=== PATIENT | female | born 1980 | race Caucasian/White ===

== ENCOUNTER 2020-10-10 13:12 | Inpatient (IN) | payer MEDICARE, MEDICAID, SELFPAY ==
[2020-10-10 13:49] VITALS: BP 100/69; PULSE 79; RESP 15; TEMP 37.1; O2SAT 94; BMI 34.3
[2020-10-10 13:55] VITALS: BP 100/69; PULSE 79; RESP 15; TEMP 37.1; O2SAT 94
--- NOTE | 2020-10-10 14:00 | ED.PSYCH ---
HPI - Psych General Chief Complaint: Psychiatric Symptoms Stated Complaint: crisis Time Seen by Provider: 10/10/20 13:41 Source: patient Mode of arrival: ambulatory Limitations: no limitations History of Present Illness HPI Narrative: 39 yo female here with past medical history PTSD, anxiety, depression, previous suicide attempt here with complaints of suicidal ideations for the last few days with no plan. No HI. No hallucinations. No physical complaints. Has been compliant with taking her medications MD complaint: suicidal ideation Onset (ago): day(s) Duration: intermittent History of same: Yes Relieving factors: none Exacerbating factors: none Associated psychiatric symptoms: depression and suicidal ideation Associated symptoms: denies other symptoms Treatments prior to arrival: none If self harm: admits thoughts of self harm Related Data Home Medications Medication Instructions Recorded Confirmed benztropine 1 tab PO DAILY 10/10/20 10/10/20 citalopram 1 tab PO DAILY 10/10/20 10/10/20 clonazepam 1 tab PO BID PRN 10/10/20 10/10/20 gabapentin 1 cap PO TID 10/10/20 10/10/20 hydroxyzine HCl 1 tab PO QID PRN 10/10/20 10/10/20 lamotrigine 1.5 tab PO DAILY 10/10/20 10/10/20 quetiapine 1 tab PO BEDTIME 10/10/20 10/10/20 quetiapine 1 tab PO BID PRN 10/10/20 10/10/20 Allergies Allergy/AdvReac Type Severity Reaction Status Date / Time No Known Allergies Allergy Unverified 06/04/20 17:17 Review of Systems Review of Systems: Yes all other systems are reviewed and are negative Constitutional: Constitutional: Reports no additional constitutional complaints, Denies body ache(s), Denies chills, Denies fever(s), Denies headache(s) and Denies weakness Eyes: Eyes: Reports no additional eye complaints and Denies change in vision ENT: Reports system reviewed and no additional complaints, except as documented, Denies dizziness, Denies headache(s), Denies nasal congestion, Denies nasal discharge and Denies neck pain Cardiovascular: Cardiovascular: Reports no additional cardiovascular complaints, Denies chest pain, Denies leg edema and Denies dyspnea Respiratory: Respiratory: Reports no additional respiratory complaints, Denies cough and Denies dyspnea Gastrointestinal: Gastrointestinal: Reports no additional gastrointestinal complaints, Denies abdominal pain, Denies diarrhea, Denies nausea and Denies vomiting Genitourinary: Genitourinary: Reports no additional female genitourinary complaints and Denies urinary incontinence Musculoskeletal: Musculoskeletal: Reports no additional musculoskeletal complaints, Denies back pain, Denies arthralgias, Denies joint swelling, Denies neck pain, Denies numbness and Denies tingling Integumentary/Breasts: Skin/Breast: Reports system reviewed and no additional complaints, except as docu and Denies rash Neurologic: Reports system reviewed and no additional complaints, except as documented, Denies Abnormal speech present, Denies dizziness, Denies headache(s), Denies numbness, Denies tingling and Denies weakness Psychiatric: Psychiatric: Reports depression, Denies visual hallucinations, Denies hallucinations, Denies tactile hallucinations, Denies homicidal ideation and Reports suicidal ideation [facility] Past Medical History Attestation statement: The following information was validated with the patient. Source: old records reviewed and nursing notes reviewed Medical History (Updated 10/10/20 @ 18:47 by Suzan Hua NP) Anxiety Depression PTSD (post-traumatic stress disorder) Suicide attempt Social History Social History Alcohol intake: former Smoking Status: Current every day smoker Use of substances other than those prescribed or required for medical reasons: No Advance Directives: No Advance Directives Information Provided: No Physical Exam Vital Signs: Vital Signs: Last Vital Signs Temp 98.7 F 10/10/20 13:55 Pulse 79 10/10/20 13:55 Resp 15 10/10/20 13:55 BP 100/69 10/10/20 13:55 Pulse Ox 94 10/10/20 13:55 Body Mass Index 34.3 Const: General: cooperative, healthy appearing, comfortable and no acute distress Orientation/consciousness: patient oriented x3 Limitations: no limitations HENMT: Head: Yes normal to inspection Ears: hearing grossly normal bilaterally General nose exam: Normal external nose present Face and sinus: Yes normal facial exam Mouth: Normal oral and palatal mucosa present Throat: Yes posterior oropharynx normal Eyes: General: appearance normal, both eyes and all related structures Pupils: Equal, round and reactive pupils present Neck: Neck: Yes normal visual inspection Chest: Chest palpation & inspection: normal inspection of the chest Resp: Effort & Inspection: normal respiratory effort Auscultation: clear to auscultation bilaterally Cardio: Rate: regular rate Rhythm: regular rhythm Peripheral pulses: Peripheral pulses 2+ throughout GI: Inspection: Yes normal to inspection Palpation (GI): Soft to palpation and nontender Auscultation: normal bowel sounds Back/Spine/Pelvis: Thoracic/Lumbar Spine: thoracic and lumbar spine normal to inspection Skin: General skin exam: no rashes or lesions noted Neuro: General: patient oriented x3, no focal motor deficits and normal sensation to monofilament Cranial nerves: Yes Equal, round and reactive pupils present Cognition (Neuro): normal cognition Speech: No Abnormal speech present Gait exam (Neuro): Normal gait present Motor exam (neuro): 5/5 motor strength present throughout Extrem: General: Yes normal to inspection Course Course Course Narrative: 39-year-old female here with suicidal thoughts. No physical complaints. No concern for acute ingestion or trauma. Will check labs, GALDAMEZ and BHN evaluation 1630-Seen by N. Plan for voluntary bed search MDM - Psych Restraints Face to Face Assessment: Face to Face Assessment: Current Situation: After assessment of the patient, a review of the pertinent medical record and a discussion with nursing staff, I feel the patient requires a restrain intervention. Reaction To: [] Medical Condition: [] Behavioral State: [] Continued Need: [] Medical Records Attestation: I reviewed the patient's medical records. Lab Data Attestation: I reviewed the patient's lab results. Result diagrams: 10/10/20 14:15 10/10/20 14:15 Labs: Lab Results 10/10/20 10/10/20 10/10/20 Range/Units 14:05 14:05 14:15 WBC 5.4 (4.8-10.8) X10*3/uL RBC 4.94 (4.20-5.50) X10*6/uL Hgb 14.0 (12.0-16.0) g/dl Hct 42.5 (37-47) % MCV 86.0 (80-98) fL MCH 28.3 (27.0-33.0) pg MCHC 32.9 (31.0-35.0) g/dl RDW 12.3 (11.0-16.0) % Plt Count 184 (160-400) X10*3/uL MPV 9.6 (9.4-12.3) fL Immature Gran % (Auto) 0.2 (0.0-0.4) % Neut % (Auto) 60.5 (45-73) % Lymph % (Auto) 33.8 (20-40) % [place] % (Auto) 4.3 (2-11) % Eos % (Auto) 0.6 (0-4) % Baso % (Auto) 0.6 (0-2) % Lymph # (Auto) 1.8 (1.2-4.9) X10*3/uL [place] # (Auto) 0.2 (0.1-1.2) X10*3/uL Eos # (Auto) 0.0 (0.0-0.4) X10*3/uL Baso # (Auto) 0.0 (0.0-0.2) X10*3/uL Abs Immat Gran (auto) 0.01 (0.00-0.03) X10*3/uL Absolute Neuts (auto) 3.3 (2.0-8.3) X10*3/uL Absolute Nucleated RBC 0.000 (0.0-0.012) X10*3/uL Nucleated RBC % (auto) 0.0 (0.0-0.2) /100WBC Sodium (135-145) mmol/L Potassium (3.3-5.1) mmol/l Chloride (96-108) mmol/L Carbon Dioxide (22-29) mmol/L Anion Gap (12-20) BUN (9-16) mg/dL Creatinine (0.5-1.4) mg/dL Estim Creat Clear Calc Estimated GFR Random Glucose (60-115) mg/dL Calcium (8.4-10.2) mg/dL Total Bilirubin (0.0-1.0) mg/dL Direct Bilirubin (0.0-0.5) mg/dL AST (5-31) U/L ALT (0-31) U/L Alkaline Phosphatase (39-117) U/L Total Protein (6.5-8.0) g/dL Albumin (3.5-5.0) g/dL Urine Test NEGATIVE (NEGATIVE) Urine Opiates Screen Not Detected (Not Detect) Ur Barbiturates Screen Not Detected (Not Detect) Ur Phencyclidine Scrn Not Detected (Not Detect) Ur Amphetamines Screen Not Detected (Not Detect) U Benzodiazepines Scrn POSITIVE H (Not Detect) Urine Cocaine Screen Not Detected (Not Detect) U Marijuana (THC) Screen POSITIVE H (Not Detect) Ethyl Alcohol mg/dL COVID-19 (AAYUSH) (Negative) COVID-19 Clin Com 10/10/20 10/10/20 10/10/20 Range/Units 14:15 14:15 16:36 WBC (4.8-10.8) X10*3/uL RBC (4.20-5.50) X10*6/uL Hgb (12.0-16.0) g/dl Hct (37-47) % MCV (80-98) fL MCH (27.0-33.0) pg MCHC (31.0-35.0) g/dl RDW (11.0-16.0) % Plt Count (160-400) X10*3/uL MPV (9.4-12.3) fL Immature Gran % (Auto) (0.0-0.4) % Neut % (Auto) (45-73) % Lymph % (Auto) (20-40) % [place] % (Auto) (2-11) % Eos % (Auto) (0-4) % Baso % (Auto) (0-2) % Lymph # (Auto) (1.2-4.9) X10*3/uL [place] # (Auto) (0.1-1.2) X10*3/uL Eos # (Auto) (0.0-0.4) X10*3/uL Baso # (Auto) (0.0-0.2) X10*3/uL Abs Immat Gran (auto) (0.00-0.03) X10*3/uL Absolute Neuts (auto) (2.0-8.3) X10*3/uL Absolute Nucleated RBC (0.0-0.012) X10*3/uL Nucleated RBC % (auto) (0.0-0.2) /100WBC Sodium 134 L (135-145) mmol/L Potassium 4.5 (3.3-5.1) mmol/l Chloride 101 (96-108) mmol/L Carbon Dioxide 23 (22-29) mmol/L Anion Gap 15 (12-20) BUN 12 (9-16) mg/dL Creatinine 0.95 (0.5-1.4) mg/dL Estim Creat Clear Calc 87.6 Estimated GFR > 60 Random Glucose 85 (60-115) mg/dL Calcium 8.4 (8.4-10.2) mg/dL Total Bilirubin 0.4 (0.0-1.0) mg/dL Direct Bilirubin < 0.2 (0.0-0.5) mg/dL AST 20 (5-31) U/L ALT 13 (0-31) U/L Alkaline Phosphatase 78 (39-117) U/L Total Protein 6.8 (6.5-8.0) g/dL Albumin 3.8 (3.5-5.0) g/dL Urine Test (NEGATIVE) Urine Opiates Screen (Not Detect) Ur Barbiturates Screen (Not Detect) Ur Phencyclidine Scrn (Not Detect) Ur Amphetamines Screen (Not Detect) U Benzodiazepines Scrn (Not Detect) Urine Cocaine Screen (Not Detect) U Marijuana (THC) Screen (Not Detect) Ethyl Alcohol < 10 mg/dL COVID-19 (AAYUSH) Negative (Negative) COVID-19 Clin Com See Note Discharge Plan Discharge Clinical Impression: Post traumatic stress disorder, Depression Patient Disposition: Xfer Psychiatric Hosp Prescriptions: No Action quetiapine 25 mg tablet 1 tab PO BID PRN (Reason: Agitation) RF: 0 clonazepam 1 mg tablet 1 tab PO BID PRN (Reason: anxiety) RF: 0 hydroxyzine HCl 50 mg tablet 1 tab PO QID PRN (Reason: Anxiety) RF: 0 citalopram 20 mg tablet 1 tab PO DAILY RF: 0 benztropine 1 mg tablet 1 tab PO DAILY RF: 0 gabapentin 300 mg capsule 1 cap PO TID RF: 0 lamotrigine 100 mg tablet 1.5 tab PO DAILY RF: 0 quetiapine 400 mg tablet 1 tab PO BEDTIME RF: 0
[2020-10-10 14:20] LABS: Basophils Percent Auto 0.6 % (0-2); Eosinophils Percent Auto 0.6 % (0-4); Hematocrit 42.5 % (37-47); Imm Gran Abs Auto 0.01 X10*3/uL (0.00-0.03); Imm Gran Pct Auto 0.2 % (0.0-0.4); Lymphocytes Absolute Auto 1.8 X10*3/uL (1.2-4.9); Lymphocytes Percent Auto 33.8 % (20-40); MANUAL DIFF FLAG NO; Mean Corpuscular HGB Conc 32.9 g/dl (31.0-35.0); Mean Corpuscular Hemoglobin 28.3 pg (27.0-33.0); Mean Platelet Volume 9.6 fL (9.4-12.3); Monocytes Absolute Auto 0.2 X10*3/uL (0.1-1.2); Monocytes Percent Auto 4.3 % (2-11); Neutrophils Absolute Auto 3.3 X10*3/uL (2.0-8.3); Neutrophils Percent Auto 60.5 % (45-73); Platelet Count 184 X10*3/uL (160-400); Red Blood Count 4.94 X10*6/uL (4.20-5.50); Red Cell Distribution Width 12.3 % (11.0-16.0); White Blood Count 5.4 X10*3/uL (4.8-10.8)
[2020-10-10 14:27] LABS: UPreg QC Valid YES; Urine Pregnancy NEGATIVE (NEGATIVE)
[2020-10-10 14:45] LABS: Ethanol < 10 mg/dL
[2020-10-10 14:47] LABS: Amphetamine Screen Urine Not Detected (Not Detect); Barbiturates, Urine Not Detected (Not Detect); Benzodiazepines Screen Urine POSITIVE (Not Detect); Cannabinoid Screen Urine POSITIVE (Not Detect); Cocaine Screen Urine Not Detected (Not Detect); Opiate Screen Urine Not Detected (Not Detect); Phencyclidine Screen Urine Not Detected (Not Detect)
[2020-10-10 14:49] LABS: Alanine Aminotransferase 13 U/L (0-31); Albumin Level 3.8 g/dL (3.5-5.0); Alkaline Phosphatase 78 U/L (39-117); Anion Gap 15 (12-20); Aspartate Amino Transferase 20 U/L (5-31); Bilirubin Direct < 0.2 mg/dL (0.0-0.5); Bilirubin Total 0.4 mg/dL (0.0-1.0); Blood Urea Nitrogen 12 mg/dL (9-16); Calcium 8.4 mg/dL (8.4-10.2); Carbon Dioxide 23 mmol/L (22-29); Chloride 101 mmol/L (96-108); Creatinine Clr Calc Pharmacy 87.6; Estimated Glomerular Filt Rate > 60; Glucose Random 85 mg/dL (60-115); Potassium 4.5 mmol/l (3.3-5.1); Sodium 134 mmol/L (135-145); Total Protein 6.8 g/dL (6.5-8.0)
--- NOTE | 2020-10-10 14:55 | PC.NURSE ---
AYLIN faxed and called, confirmed with maxime
--- NOTE | 2020-10-10 15:15 | PC.NURSE ---
Pt reports that she in on methadone maintenence with [facility] in [place], clinic is closed at this time, will verify tomorrow.
--- NOTE | 2020-10-10 15:51 | PC.NURSE ---
[facility] at bedside for eval.
[2020-10-10 16:57] LABS: COVID-19 Test Negative (Negative); IDNOW Serial# 9DD0AD1C
--- NOTE | 2020-10-10 19:24 | PC.NURSE ---
Report received. PT is laying in bed quietly. Tearful but calm and cooperative. Waiting to be transferred to .
[2020-10-10 20:00] VITALS: BP 120/80; PULSE 79; TEMP 36.2
[2020-10-10] MEDS: QUEtiapine Fumarate 400 MG TABLET PO (21:56)
[2020-10-10] MEDS: Gabapentin 300 MG CAPSULE PO (21:56)
[2020-10-10] MEDS: clonazePAM 1 MG TABLET PO (21:57)
--- NOTE | 2020-10-10 23:59 | PC.ADMIT ---
A single, white female aged 39 years was admitted as a CV to [facility] following referral from [facility] and [facility]. Pt has a long history of inpatient psychiatric and detox admissions as well as community based treatment for mental health and substance use disorder. Pt has 3 previous admissions here on M-5 in 2013, 2014 and 2016. Pt self presented to [facility] on 10/10/20 endorsing increasing thoughts of SI related to life stressors including recent of a family member and unemployment r/t Covid pandemic. Pt said she was having difficulty managing symptoms of depression and feels her medications are no longer effective. Pt reported to this check writer salesperson that though she has intermittent SI, she can seek out help from staff. Pt reports that she had a recent suicide attempt involving o/d of prescription medications several months ago in which she was hospitalized at [facility]. Pt reports her SI involves planning o/d of prescription medications at home and in community. Pt rated depression at 8/10 and anxiety at 9/10. Pt reports trauma history and previous diagnosis of PTSD. Pt was cooperative, but offered short answers to questions. Pt avoided eye contact and wanted to do admission while she was in her bed, despite the fact her roommate was in the room. Pt reports that she has difficulty sleeping, with problems going to sleep and staying asleep. Pt reports diminished appetite, but weight gain. Pt denies use of Etoh and substances. Pt is on methadone and says has not used heroin in seven years. pt reports that she has been tapering methadone with intent of eventually being off of it. Pt lacks providers in community. Pt is Covid -, has no medical issues at this time and has noo known allergies. Pt is on 15 minute safety checks at this time. [id number] done. Admitting orders obtained.
[2020-10-11 06:20] VITALS: BP 92/54; PULSE 55; RESP 18; TEMP 36.3; O2SAT 97
[2020-10-11 08:26] LABS: Cholesterol 272 mg/dL; HDL Cholesterol 45 mg/dL; LDL Cholesterol Calculated 183 mg/dl; Triglycerides 220 mg/dL
[2020-10-11] MEDS: lamoTRIgine 100 MG TABLET 150 MG PO (08:37)
[2020-10-11] MEDS: Gabapentin 300 MG CAPSULE PO ×3 (08:38→20:07)
[2020-10-11] MEDS: Escitalopram Oxalate 10 MG TABLET PO (08:38)
[2020-10-11 08:48] LABS: Thyroid Stimulating Hormone 1.57 uIU/mL (0.32-4.0)
[2020-10-11] MEDS: clonazePAM 1 MG TABLET PO ×2 (11:06→20:07)
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
[2020-10-11] MEDS: QUEtiapine Fumarate 25 MG TABLET PO (14:31)
[2020-10-11 18:00] VITALS: BP 102/53; PULSE 61; TEMP 36.5
[2020-10-11] MEDS: QUEtiapine Fumarate 200 MG TABLET PO (20:07)
[2020-10-11 20:08] VITALS: BP 102/53; PULSE 61
[2020-10-11] MEDS: cloNIDine HCL 0.1 MG TABLET PO (20:08)
[2020-10-11] MEDS: Ibuprofen 800 MG TABLET PO (21:05)
[2020-10-12 03:53] LABS: Estimated Average Glucose 97 mg/dL
[2020-10-12 05:12] LABS: Folate 9.8 ng/mL (> or = 4.0); Vitamin B12 431 pg/mL (200-900)
[2020-10-12 06:20] VITALS: BP 87/50; PULSE 56; RESP 16; TEMP 36.6; O2SAT 98
[2020-10-12 08:31] VITALS: BP 87/50; PULSE 56; RESP 16; TEMP 36.6; O2SAT 98
[2020-10-12] MEDS: Venlafaxine HCl ER 37.5 MG CAP.ER.24H PO (08:58)
[2020-10-12] MEDS: Gabapentin 300 MG CAPSULE PO ×2 (08:58→14:06)
[2020-10-12] MEDS: clonazePAM 1 MG TABLET PO ×2 (09:06→21:28)
--- NOTE | 2020-10-12 14:02 | P.PNPSI_ITS ---
Subjective Subjective Date of Service: 10/12/20 Reason For Visit: SI Subjective Notes: Conditional Voluntary Interim History: Tamela reports feeling depressed, very tearful remembering her mother, feeling guilty about her , feeling lonely, no support from family. Pt endorses anxious mood, low energy, anhedonia, hopeless/helpless. She reports passive suicidal ideation but denies any plan or intent Medication Compliance: Yes Side effects from medications: No Attending Groups: Yes Review of Systems Review of Systems Yes all other systems are reviewed and are negative Constitutional: Reports no additional constitutional complaints, Denies body ache(s), Denies chills, Denies fever(s), Denies headache(s) and Denies weakness Eyes: Reports no additional eye complaints and Denies change in vision Reports system reviewed and no additional complaints, except as documented, Denies dizziness, Denies headache(s), Denies nasal congestion, Denies nasal discharge and Denies neck pain Cardiovascular: Reports no additional cardiovascular complaints, Denies chest pain, Denies leg edema and Denies dyspnea Respiratory: Reports no additional respiratory complaints, Denies cough and Denies dyspnea Gastrointestinal: Reports no additional gastrointestinal complaints, Denies abdominal pain, Denies diarrhea, Denies nausea and Denies vomiting Musculoskeletal: Reports no additional musculoskeletal complaints, Denies back pain, Denies arthralgias, Denies joint swelling, Denies neck pain, Denies num bness and Denies tingling Skin/Breast: Reports system reviewed and no additional complaints, except as docu and Denies rash Reports system reviewed and no additional complaints, except as documented, Denies Abnormal speech present, Denies dizziness, Denies headache(s), Denies numbness, Denies tingling and Denies weakness Psychiatric: Reports depression, Denies visual hallucinations, Denies hallucinations, Denies tactile hallucinations, Denies homicidal ideation and Reports suicidal ideation Mental Status Exam Mental Status Exam Narrative: Appearance: wearing hospital gown, disheveled, in NAD Behavior: cooperative Psychomotor: no agitation or retardation noted Speech: clear, normal rate/rhythm/volume, spontaneous TP: linear TC: no signs of psychosis, feeling lonely, crashing Mood: depressed Affect: blunted, congruent AH/VH: none Delusions: none Insight/judgment: poor x 2. Memory/cog: alert, oriented x 4. Grossly intact to conversational testing. Diagnostics Vital Signs (24Hr): Vital Signs - 24 hr 10/11/20 18:00 10/11/20 20:08 10/12/20 06:20 Temperature 97.7 F 97.8 F Pulse Rate 61 61 56 Respiratory Rate 16 Blood Pressure 102/53 L 102/53 L 87/50 L Pulse Oximetry 98 10/12/20 08:31 Temperature 97.8 F Pulse Rate 56 Respiratory Rate 16 Blood Pressure 87/50 L Pulse Oximetry 98 Body Mass Index 34.3 Labs Results: 10/10/20 14:15 10/10/20 14:15 Labs: Laboratory Results - last 48 hr 10/10/20 10/10/20 10/10/20 14:05 14:05 14:15 WBC 5.4 RBC 4.94 Hgb 14.0 Hct 42.5 MCV 86.0 MCH 28.3 MCHC 32.9 RDW 12.3 Plt Count 184 MPV 9.6 Immature Gran % (Auto) 0.2 Neut % (Auto) 60.5 Lymph % (Auto) 33.8 [place] % (Auto) 4.3 Eos % (Auto) 0.6 Baso % (Auto) 0.6 Lymph # (Auto) 1.8 [place] # (Auto) 0.2 Eos # (Auto) 0.0 Baso # (Auto) 0.0 Abs Immat Gran (auto) 0.01 Absolute Neuts (auto) 3.3 Absolute Nucleated RBC 0.000 Nucleated RBC % (auto) 0.0 Sodium Potassium Chloride Carbon Dioxide Anion Gap BUN Creatinine Estim Creat Clear Calc Estimated GFR Random Glucose Estimat Average Glucose Hemoglobin A1c % Calcium Total Bilirubin Direct Bilirubin AST ALT Alkaline Phosphatase Total Protein Albumin Triglycerides Cholesterol LDL Cholesterol, Calc HDL Cholesterol Vitamin B12 Folate TSH Urine Test NEGATIVE Urine Opiates Screen Not Detected Ur Barbiturates Screen Not Detected Ur Phencyclidine Scrn Not Detected Ur Amphetamines Screen Not Detected U Benzodiazepines Scrn POSITIVE H Urine Cocaine Screen Not Detected U Marijuana (THC) Screen POSITIVE H Ethyl Alcohol COVID-19 ([facility]) COVID-19 Clin Com 10/10/20 10/10/20 10/10/20 14:15 14:15 16:36 WBC RBC Hgb Hct MCV MCH MCHC RDW Plt Count MPV Immature Gran % (Auto) Neut % (Auto) Lymph % (Auto) [place] % (Auto) Eos % (Auto) Baso % (Auto) Lymph # (Auto) [place] # (Auto) Eos # (Auto) Baso # (Auto) Abs Immat Gran (auto) Absolute Neuts (auto) Absolute Nucleated RBC Nucleated RBC % (auto) Sodium 134 L Potassium 4.5 Chloride 101 Carbon Dioxide 23 Anion Gap 15 BUN 12 Creatinine 0.95 Estim Creat Clear Calc 87.6 Estimated GFR > 60 Random Glucose 85 Estimat Average Glucose Hemoglobin A1c % Calcium 8.4 Total Bilirubin 0.4 Direct Bilirubin < 0.2 AST 20 ALT 13 Alkaline Phosphatase 78 Total Protein 6.8 Albumin 3.8 Triglycerides Cholesterol LDL Cholesterol, Calc HDL Cholesterol Vitamin B12 Folate TSH Urine Test Urine Opiates Screen Ur Barbiturates Screen Ur Phencyclidine Scrn Ur Amphetamines Screen U Benzodiazepines Scrn Urine Cocaine Screen U Marijuana (THC) Screen Ethyl Alcohol < 10 COVID-19 ([facility]) Negative COVID-19 tydy See Note 10/11/20 10/11/20 10/11/20 07:51 07:51 07:51 WBC RBC Hgb Hct MCV MCH MCHC RDW Plt Count MPV Immature Gran % (Auto) Neut % (Auto) Lymph % (Auto) [place] % (Auto) Eos % (Auto) Baso % (Auto) Lymph # (Auto) [place] # (Auto) Eos # (Auto) Baso # (Auto) Abs Immat Gran (auto) Absolute Neuts (auto) Absolute Nucleated RBC Nucleated RBC % (auto) Sodium Potassium Chloride Carbon Dioxide Anion Gap BUN Creatinine Estim Creat Clear Calc Estimated GFR Random Glucose Estimat Average Glucose 97 Hemoglobin A1c % 5.0 Calcium Total Bilirubin Direct Bilirubin AST ALT Alkaline Phosphatase Total Protein Albumin Triglycerides 220 Cholesterol 272 LDL Cholesterol, Calc 183 HDL Cholesterol 45 Vitamin B12 431 Folate 9.8 TSH 1.57 Urine Test Urine Opiates Screen Ur Barbiturates Screen Ur Phencyclidine Scrn Ur Amphetamines Screen U Benzodiazepines Scrn Urine Cocaine Screen U Marijuana (THC) Screen Ethyl Alcohol COVID-19 ([facility]) COVID-19 [employer] Com Medications Medications Current Medications Generic Name Dose Route Start Last Admin Trade Name Freq PRN Reason Stop Dose Admin Acetaminophen 650 mg 10/10/20 19:26 Acetaminophen 325 Mg Tablet PO Q6H PRN Headache/Pain Mild Scale (1-3) Al Hydroxide/Mg Hydroxide 30 ml 10/10/20 19:26 Magnesium Hydrox/Alum Hydrox 30 Ml Oral.Susp PO Q6H PRN Heartburn/Nausea Clonazepam 1 mg 10/10/20 19:36 10/12/20 09:06 Clonazepam 1 Mg Tablet PO 1 mg BID PRN Administration anxiety Clonidine HCl 0.1 mg 10/11/20 21:00 10/11/20 20:08 Clonidine Hcl 0.1 Mg Tablet PO 0.1 mg BEDTIME KIMO Administration Protocol Gabapentin 300 mg 10/10/20 21:00 10/12/20 08:58 Gabapentin 300 Mg Capsule PO 300 mg TID KIMO Administration Hydroxyzine HCl 50 mg 10/10/20 19:36 Hydroxyzine Hcl 50 Mg Tablet PO QID PRN Anxiety Ibuprofen 800 mg 10/11/20 20:53 10/11/20 21:05 Ibuprofen 800 Mg Tablet PO 800 mg Q8H PRN Administration Pain, Moderate (Pain Scale 4-6 Magnesium Hydroxide 30 ml 10/10/20 19:26 Milk Of Magnesia 30 Ml Oral.Susp PO DAILY PRN Constipation Methadone HCl 80 mg 10/12/20 09:15 10/12/20 10:12 Methadone Hcl 1 Mg/0.1 Ml Oral.Conc PO 80 mg DAILY KIMO Administration Quetiapine Fumarate 25 mg 10/10/20 19:36 10/11/20 14:31 Quetiapine Fumarate 25 Mg Tablet PO 25 mg BID PRN Administration Agitation Quetiapine Fumarate 200 mg 10/11/20 21:00 10/11/20 20:07 Quetiapine Fumarate 200 Mg Tablet PO 200 mg BEDTIME KIMO Administration Trazodone HCl 50 mg 10/10/20 19:26 Trazodone Hcl 50 Mg Tablet PO BEDTIME PRN Insomnia Venlafaxine HCl 37.5 mg 10/12/20 09:00 10/12/20 08:58 Venlafaxine Hcl Er 37.5 Mg Cap.Er.24h PO 37.5 mg DAILY KIMO Administration Allergies Allergies Allergy/AdvReac Type Severity Reaction Status Date / Time No Known Allergies Allergy Unverified 06/04/20 17:17 Assessment & Plan Assessment & Plan (1) MDD (major depressive disorder), recurrent episode, moderate: Status: Acute Code(s): F33.1 - Major depressive disorder, recurrent, moderate Assessment and Plan: 1. Increase Effexor to 75mg po daily. 2. Increase clonidine to 0.1mg po BID 3. Continue Seroquel 200mg po qhs. 4. Increase gabapentin 600mg po TID 5. continue clonazepam, but pt aware rx will be from OP provider. Greater than 50% of the session was spent on counseling and/or coordination of care Patient educated on: diagnosis, medication risk/benefits and therapeutic strategies Informed Consent: understands
[2020-10-12] MEDS: QUEtiapine Fumarate 25 MG TABLET PO (14:06)
[2020-10-12] MEDS: Gabapentin 600 MG TABLET PO ×2 (14:25→21:20)
[2020-10-12] MEDS: hydrOXYzine HCL 50 MG TABLET PO (15:21)
[2020-10-12] MEDS: Magnesium Hydrox/Alum Hydrox 30 ML ORAL.SUSP PO (19:54)
[2020-10-12 21:20] VITALS: BP 107/62; PULSE 66
[2020-10-12] MEDS: QUEtiapine Fumarate 200 MG TABLET PO (21:20)
[2020-10-12] MEDS: cloNIDine HCL 0.1 MG TABLET PO (21:20)
[2020-10-12 22:00] VITALS: BP 114/61; PULSE 61; TEMP 36.5
[2020-10-13 06:20] VITALS: BP 96/51; PULSE 54; RESP 18; TEMP 36.7; O2SAT 98
[2020-10-13] MEDS: Gabapentin 600 MG TABLET PO ×3 (08:43→21:41)
[2020-10-13] MEDS: Venlafaxine HCl ER 75 MG CAP.ER.24H PO (08:44)
[2020-10-13] MEDS: clonazePAM 1 MG TABLET PO ×2 (08:44→14:54)
[2020-10-13] MEDS: hydrOXYzine HCL 50 MG TABLET PO (14:54)
--- NOTE | 2020-10-13 16:28 | P.PNPSI_ITS ---
Subjective Subjective Date of Service: 10/14/20 Reason For Visit: SI Interim History: Tamela continues to present as very tearful, feeling guilt for her mother's . She continues to endorse depressed mood, anxious mood. She reports intermittent suicidal ideation. She denies any plan or intent. She reports nystagmus (evident mildly on exam), jerk-like movements, mostly upper extremities. We discussed this may be likely due to gabapentin, more than seroquel. She has been visible in the unit. She has attended some groups and is social with selected peers. Review of Systems Review of Systems Yes all other systems are reviewed and are negative Constitutional: Reports no additional constitutional complaints, Denies body ach e(s), Denies chills, Denies fever(s), Denies headache(s) and Denies weakness Eyes: Reports no additional eye complaints and Denies change in vision Reports system reviewed and no additional complaints, except as documented, Denies dizziness, Denies headache(s), Denies nasal congestion, Denies nasal discharge and Denies neck pain Cardiovascular: Reports no additional cardiovascular complaints, Denies chest pain, Denies leg edema and Denies dyspnea Respiratory: Reports no additional respiratory complaints, Denies cough and Denies dyspnea Gastrointestinal: Reports no additional gastrointestinal complaints, Denies abdominal pain, Denies diarrhea, Denies nausea and Denies vomiting Musculoskeletal: Reports no additional musculoskeletal complaints, Denies back pain, Denies arthralgias, Denies joint swelling, Denies neck pain, Denies numbness and Denies tingling Skin/Breast: Reports system reviewed and no additional complaints, except as docu and Denies rash Reports system reviewed and no additional complaints, except as documented, Denies Abnormal speech present, Denies dizziness, Denies headache(s), Denies numbness, Denies tingling and Denies weakness Psychiatric: Reports depression, Denies visual hallucinations, Denies hallucinations, Denies tactile hallucinations, Denies homicidal ideation and Reports suicidal ideation Mental Status Exam Mental Status Exam Narrative: Appearance: wearing hospital gown, disheveled, in NAD Behavior: cooperative Psychomotor: no agitation or retardation noted Speech: clear, normal rate/rhythm/volume, spontaneous TP: linear TC: no signs of psychosis, feeling lonely, crashing Mood: depressed Affect: blunted, congruent AH/VH: none Delusions: none Insight/judgment: poor x 2. Memory/cog: alert, oriented x 4. Grossly intact to conversational testing. Diagnostics Vital Signs (24Hr): Vital Signs - 24 hr 10/12/20 21:20 10/12/20 22:00 10/13/20 06:20 Temperature 97.7 F 98.1 F Pulse Rate 66 61 54 Respiratory Rate 18 Blood Pressure 107/62 114/61 96/51 L Pulse Oximetry 98 Body Mass Index 34.3 Labs Results: 10/10/20 14:15 10/10/20 14:15 Labs: Laboratory Results - last 48 hr 10/11/20 10/11/20 07:51 07:51 Estimat Average Glucose 97 Hemoglobin A1c % 5.0 Vitamin B12 431 Folate 9.8 Medications Medications Current Medications Generic Name Dose Route Start Last Admin Trade Name Freq PRN Reason Stop Dose Admin Acetaminophen 650 mg 10/10/20 19:26 Acetaminophen 325 Mg Tablet PO Q6H PRN Headache/Pain Mild Scale (1-3) Al Hydroxide/Mg Hydroxide 30 ml 10/10/20 19:26 10/12/20 19:54 Magnesium Hydrox/Alum Hydrox 30 Ml Oral.Susp PO 30 ml Q6H PRN Administration Heartburn/Nausea Clonazepam 1 mg 10/10/20 19:36 10/13/20 14:54 Clonazepam 1 Mg Tablet PO 1 mg BID PRN Administration anxiety Clonidine HCl 0.1 mg 10/12/20 21:00 10/12/20 21:20 Clonidine Hcl 0.1 Mg Tablet PO 0.1 mg BEDTIME KIMO Administration Protocol Gabapentin 600 mg 10/12/20 15:00 10/13/20 14:54 Gabapentin 600 Mg Tablet PO 600 mg TID KIMO Administration Hydroxyzine HCl 50 mg 10/10/20 19:36 10/13/20 14:54 Hydroxyzine Hcl 50 Mg Tablet PO 50 mg QID PRN Administration Anxiety Ibuprofen 800 mg 10/11/20 20:53 10/11/20 21:05 Ibuprofen 800 Mg Tablet PO 800 mg Q8H PRN Administration Pain, Moderate (Pain Scale 4-6 Magnesium Hydroxide 30 ml 10/10/20 19:26 Milk Of Magnesia 30 Ml Oral.Susp PO DAILY PRN Constipation Methadone HCl 80 mg 10/12/20 09:15 10/13/20 08:43 Methadone Hcl 1 Mg/0.1 Ml Oral.Conc PO 80 mg DAILY KIMO Administration Quetiapine Fumarate 50 mg 10/13/20 21:00 Quetiapine Fumarate 50 Mg Tablet PO BEDTIME KIMO Trazodone HCl 50 mg 10/10/20 19:26 Trazodone Hcl 50 Mg Tablet PO BEDTIME PRN Insomnia Venlafaxine HCl 75 mg 10/13/20 09:00 10/13/20 08:44 Venlafaxine Hcl Er 75 Mg Cap.Er.24h PO 75 mg DAILY KIMO Administration Allergies Allergies Allergy/AdvReac Type Severity Reaction Status Date / Time No Known Allergies Allergy Unverified 06/04/20 17:17 Assessment & Plan Assessment & Plan (1) MDD (major depressive disorder), recurrent episode, moderate: Status: Acute Code(s): F33.1 - Major depressive disorder, recurrent, moderate Assessment and Plan: 1. Continue Effexor to 75mg po daily. 2. Continue clonidine to 0.1mg po QHS 3. Decrease Seroquel to 50mg po qhs. 4. Continue gabapentin 600mg po TID- questioning of nystagmus/twitching like movement related to gabapentin, not seroquel 5. continue clonazepam, but pt aware rx will be from OP provider. Greater than 50% of the session was spent on counseling and/or coordination of care
[2020-10-13 21:38] VITALS: BP 95/50; PULSE 56
[2020-10-13] MEDS: traZODone HCL 50 MG TABLET PO (21:41)
[2020-10-13] MEDS: QUEtiapine Fumarate 50 MG TABLET PO (21:41)
[2020-10-13 21:45] VITALS: BP 95/50; PULSE 56; TEMP 36.7
[2020-10-13] MEDS: Magnesium Hydrox/Alum Hydrox 30 ML ORAL.SUSP PO (21:46)
[2020-10-14] MEDS: Acetaminophen 325 MG TABLET 650 MG PO ×2 (03:16→09:53)
[2020-10-14] MEDS: clonazePAM 1 MG TABLET PO ×3 (03:17→21:14)
[2020-10-14 06:30] VITALS: BP 101/70; PULSE 62; RESP 18; TEMP 36.3; O2SAT 95
[2020-10-14] MEDS: Gabapentin 600 MG TABLET PO ×3 (09:27→21:26)
[2020-10-14] MEDS: Venlafaxine HCl ER 75 MG CAP.ER.24H PO (09:27)
[2020-10-14] MEDS: Magnesium Hydrox/Alum Hydrox 30 ML ORAL.SUSP PO (09:54)
--- NOTE | 2020-10-14 14:53 | HO.PSYCHPN ---
Subjective Subjective Date of Service: 10/14/20 Reason For Visit: SI Interim History: Reviewed nursing notes. Pt was up at night, reported sore throat, unable to stay awake. She did not received clonidine due to low BP. Pt today reports feeling somewhat tired, however, she reports feeling slightly less depressed. She continues to endorse significant anxiety throughout the day. She does worried about relapsing if depression and anxiety not under controlled. She reports intermittent suicidal ideation. She denies plan or intent. Review of Systems Review of Systems Yes all other systems are reviewed and are negative Constitutional: Reports no additional constitutional complaints, Denies body ache(s), Denies chills, Denies fever(s), Denies headache(s) and Denies weakness Eyes: Reports no additional eye complaints and Denies change in vision Reports system reviewed and no additional complaints, except as documented, Denies dizziness, Denies headache(s), Denies nasal congestion, Denies nasal discharge and Denies neck pain Cardiovascular: Reports no additional cardiovascular complaints, Denies chest pain, Denies leg edema and Denies dyspnea Respiratory: Reports no additional respiratory complaints, Denies cough and Denies dyspnea Gastrointestinal: Reports no additional gastrointestinal complaints, Denies abdominal pain, Denies diarrhea, Denies nausea and Denies vomiting Musculoskeletal: Reports no additional musculoskeletal complaints, Denies back pain, Denies arthralgias, Denies joint swelling, Denies neck pain, Denies numbness and Denies tingling Skin/Breast: Reports system reviewed and no additional complaints, except as docu and Denies rash Reports system reviewed and no additional complaints, except as documented, Denies Abnormal speech present, Denies dizziness, Denies headache(s), Denies numbness, Denies tingling and Denies weakness Psychiatric: Reports depression, Denies visual hallucinations, Denies hallucinations, Denies tactile hallucinations, Denies homicidal ideation and Reports suicidal ideation Mental Status Exam Mental Status Exam Narrative: Appearance: wearing hospital gown, disheveled, in NAD Behavior: cooperative Psychomotor: no agitation or retardation noted Speech: clear, normal rate/rhythm/volume, spontaneous TP: linear TC: no signs of psychosis, feeling lonely, crashing Mood: depressed Affect: blunted, congruent AH/VH: none Delusions: none Insight/judgment: poor x 2. Memory/cog: alert, oriented x 4. Grossly intact to conversational testing. Diagnostics Vital Signs (24Hr): Vital Signs - 24 hr 10/13/20 21:38 10/13/20 21:45 10/14/20 06:30 Temperature 98.1 F 97.4 F Pulse Rate 56 56 62 Respiratory Rate 18 Blood Pressure 95/50 L 95/50 L 101/70 Pulse Oximetry 95 Body Mass Index 34.3 Labs Results: 10/10/20 14:15 10/10/20 14:15 Medications Medications Current Medications Generic Name Dose Route Start Last Admin Trade Name Fre PRN Reason Stop Dose Admin Acetaminophen 650 mg 10/10/20 19:26 10/14/20 09:53 Acetaminophen 325 Mg Tablet PO 650 mg Q6H PRN Administration Headache/Pain Mild Scale (1-3) Al Hydroxide/Mg Hydroxide 30 ml 10/10/20 19:26 10/14/20 09:54 Magnesium Hydrox/Alum Hydrox 30 Ml Oral.Susp PO 30 ml Q6H PRN Administration Heartburn/Nausea Clonazepam 1 mg 10/14/20 21:00 Clonazepam 1 Mg Tablet PO BID [facility] Clonazepam 0.5 mg 10/14/20 13:28 Clonazepam 0.5 Mg Tablet PO DAILY PRN severe anxiety Clonidine HCl 0.1 mg 10/12/20 21:00 10/13/20 21:38 Clonidine Hcl 0.1 Mg Tablet PO Not Given BEDTIME [facility] Protocol Gabapentin 600 mg 10/12/20 15:00 10/14/20 09:27 Gabapentin 600 Mg Tablet PO 600 mg TID KIMO Administration Hydroxyzine HCl 50 mg 10/10/20 19:36 10/13/20 14:54 Hydroxyzine Hcl 50 Mg Tablet PO 50 mg QID PRN Administration Anxiety Ibuprofen 800 mg 10/11/20 20:53 10/11/20 21:05 Ibuprofen 800 Mg Tablet PO 800 mg Q8H PRN Administration Pain, Moderate (Pain Scale 4-6 Magnesium Hydroxide 30 ml 10/10/20 19:26 Milk Of Magnesia 30 Ml Oral.Susp PO DAILY PRN Constipation Methadone HCl 80 mg 10/12/20 09:15 10/14/20 09:27 Methadone Hcl 1 Mg/0.1 Ml Oral.Conc PO 80 mg DAILY KIMO Administration Trazodone HCl 100 mg 10/14/20 21:00 Trazodone Hcl 100 Mg Tablet PO BEDTIME KIMO Venlafaxine HCl 75 mg 10/13/20 09:00 10/14/20 09:27 Venlafaxine Hcl Er 75 Mg Cap.Er.24h PO 75 mg DAILY KIMO Administration Allergies Allergies Allergy/AdvReac Type Severity Reaction Status Date / Time No Known Allergies Allergy Unverified 06/04/20 17:17 Assessment & Plan Assessment & Plan (1) MDD (major depressive disorder), recurrent episode, moderate: Status: Acute Code(s): F33.1 - Major depressive disorder, recurrent, moderate Assessment and Plan: 1. Continue Effexor to 75mg po daily. 2. Continue clonidine to 0.1mg po QHS 3. Decrease Seroquel to 50mg po qhs. 4. Continue gabapentin 600mg po TID- questioning of nystagmus/twitching like movement related to gabapentin, not seroquel 5. continue clonazepam, but pt aware rx will be from OP provider. Greater than 50% of the session was spent on counseling and/or coordination of care
[2020-10-14] MEDS: clonazePAM 0.5 MG TABLET PO (15:26)
[2020-10-14 21:14] VITALS: BP 129/66; PULSE 79
[2020-10-14] MEDS: traZODone HCL 100 MG TABLET PO (21:14)
[2020-10-14] MEDS: cloNIDine HCL 0.1 MG TABLET PO (21:14)
[2020-10-14 21:22] VITALS: BP 129/66; PULSE 79; TEMP 36.4
[2020-10-15 06:10] VITALS: BP 90/51; PULSE 59; RESP 16; TEMP 36.3; O2SAT 96
[2020-10-15 07:00] VITALS: BMI 43.4
[2020-10-15] MEDS: clonazePAM 1 MG TABLET PO ×2 (09:11→20:03)
[2020-10-15] MEDS: Venlafaxine HCl ER 75 MG CAP.ER.24H PO (09:12)
[2020-10-15] MEDS: Gabapentin 600 MG TABLET PO ×3 (09:12→20:03)
[2020-10-15] MEDS: Magnesium Hydrox/Alum Hydrox 30 ML ORAL.SUSP PO (12:18)
--- NOTE | 2020-10-15 13:10 | HO.PSYCHPN ---
Subjective Subjective Date of Service: 10/15/20 Reason For Visit: SI Interim History: Pt reports fair sleep, less frequently waking up. She reports less depression, some anxiety. She report she feels jumpy and thinks need seroquel low dose back. She reports passive suicidal ideation. She denies intent. She asks about ECT and fact that she had it several years here in the unit and felt it was helpful. We discussed she would have to come off benzos and gabapentin. Pt reports waiting until Monday for decision. We discussed increasing Venlafaxine. Review of Systems Review of Systems Yes all other systems are reviewed and are negative Constitutional: Reports no additional constitutional complaints, Denies body ache(s), Denies chills, Denies fever(s), Denies headache(s) and Denies weakness Eyes: Reports no additional eye complaints and Denies change in vision Reports system reviewed and no additional complaints, except as documented, Denies dizziness, Denies headache(s), Denies nasal congestion, Denies nasal discharge and Denies neck pain Cardiovascular: Reports no additional cardiovascular complaints, Denies chest pain, Denies leg edema and Denies dyspnea Respiratory: Reports no additional respiratory complaints, Denies cough and Denies dyspnea Gastrointestinal: Reports no additional gastrointestinal complaints, Denies abdominal pain, Denies diarrhea, Denies nausea and Denies vomiting Musculoskeletal: Reports no additional musculoskeletal complaints, Denies back pain, Denies arthralgias, Denies joint swelling, Denies neck pain, Denies numbness and Denies tingling Skin/Breast: Reports system reviewed and no additional complaints, except as docu and Denies rash Reports system reviewed and no additional complaints, except as documented, Denies Abnormal speech present, Denies dizziness, Denies headache(s), Denies numbness, Denies tingling and Denies weakness Psychiatric: Reports depression, Denies visual hallucinations, Denies hallucinations, Denies tactile hallucinations, Denies homicidal ideation and Reports suicidal ideation Mental Status Exam Mental Status Exam Narrative: Appearance: wearing hospital gown, disheveled, in NAD Behavior: cooperative Psychomotor: no agitation or retardation noted Speech: clear, normal rate/rhythm/volume, spontaneous TP: linear TC: no signs of psychosis, feeling lonely, crashing Mood: depressed Affect: blunted, congruent AH/VH: none Delusions: none Insight/judgment: poor x 2. Memory/cog: alert, oriented x 4. Grossly intact to conversational testing. Diagnostics Vital Signs (24Hr): Vital Signs - 24 hr 10/14/20 21:14 10/14/20 21:22 10/15/20 06:10 Temperature 97.5 F 97.4 F Pulse Rate 79 79 59 Respiratory Rate 16 Blood Pressure 129/66 129/66 90/51 L Pulse Oximetry 96 Body Mass Index 43.4 Labs Results: 10/10/20 14:15 10/10/20 14:15 Medications Medications Current Medications Generic Name Dose Route Start Last Admin Trade Name Freq PRN Reason Stop Dose Admin Acetaminophen 650 mg 10/10/20 19:26 10/14/20 09:53 Acetaminophen 325 Mg Tablet PO 650 mg Q6H PRN Administration Headache/Pain Mild Scale (1-3) Al Hydroxide/Mg Hydroxide 30 ml 10/10/20 19:26 10/15/20 12:18 Magnesium Hydrox/Alum Hydrox 30 Ml Oral.Susp PO 30 ml Q6H PRN Administration Heartburn/Nausea Clonazepam 1 mg 10/14/20 21:00 10/15/20 09:11 Clonazepam 1 Mg Tablet PO 1 mg BID KIMO Administration Clonazepam 0.5 mg 10/14/20 13:28 10/14/20 15:26 Clonazepam 0.5 Mg Tablet PO 0.5 mg DAILY PRN Administration severe anxiety Clonidine HCl 0.1 mg 10/12/20 21:00 10/14/20 21:14 Clonidine Hcl 0.1 Mg Tablet PO 0.1 mg BEDTIME KIMO Administration Protocol Gabapentin 600 mg 10/12/20 15:00 10/15/20 09:12 Gabapentin 600 Mg Tablet PO 600 mg TID KIMO Administration Hydroxyzine HCl 50 mg 10/10/20 19:36 10/13/20 14:54 Hydroxyzine Hcl 50 Mg Tablet PO 50 mg QID PRN Administration Anxiety Ibuprofen 800 mg 10/11/20 20:53 10/11/20 21:05 Ibuprofen 800 Mg Tablet PO 800 mg Q8H PRN Administration Pain, Moderate (Pain Scale 4-6 Magnesium Hydroxide 30 ml 10/10/20 19:26 Milk Of Magnesia 30 Ml Oral.Susp PO DAILY PRN Constipation Methadone HCl 80 mg 10/12/20 09:15 10/15/20 09:11 Methadone Hcl 1 Mg/0.1 Ml Oral.Conc PO 80 mg DAILY KIMO Administration Trazodone HCl 100 mg 10/14/20 21:00 10/14/20 21:14 Trazodone Hcl 100 Mg Tablet PO 100 mg BEDTIME KIMO Administration Venlafaxine HCl 75 mg 10/13/20 09:00 10/15/20 09:12 Venlafaxine Hcl Er 75 Mg Cap.Er.24h PO 75 mg DAILY KIMO Administration Allergies Allergies Allergy/AdvReac Type Severity Reaction Status Date / Time No Known Allergies Allergy Unverified 06/04/20 17:17 Assessment & Plan Assessment & Plan (1) MDD (major depressive disorder), recurrent episode, moderate: Status: Acute Code(s): F33.1 - Major depressive disorder, recurrent, moderate Assessment and Plan: 1. Increase Effexor to 112.5mg po daily. 2. Continue clonidine to 0.1mg po QHS 3. Decrease Seroquel to 50mg po qhs. 4. Continue gabapentin 600mg po TID- questioning of nystagmus/twitching like movement related to gabapentin, not seroquel 5. continue clonazepam, but pt aware rx will be from OP provider. Greater than 50% of the session was spent on counseling and/or coordination of care Patient educated on: diagnosis, medication risk/benefits, substance abuse and therapeutic strategies Informed Consent: understands
[2020-10-15] MEDS: clonazePAM 0.5 MG TABLET PO (15:20)
[2020-10-15 15:50] VITALS: BP 111/71; PULSE 78; TEMP 35.9
[2020-10-15] MEDS: traZODone HCL 100 MG TABLET PO (20:02)
[2020-10-15 20:03] VITALS: BP 120/57; PULSE 67
[2020-10-15] MEDS: cloNIDine HCL 0.1 MG TABLET PO (20:03)
[2020-10-16 06:25] VITALS: BP 127/58; PULSE 85; RESP 18; TEMP 36.7; O2SAT 98
[2020-10-16] MEDS: Venlafaxine HCl ER 37.5 MG CAP.ER.24H PO (08:42)
[2020-10-16] MEDS: Venlafaxine HCl ER 75 MG CAP.ER.24H PO (08:43)
[2020-10-16] MEDS: clonazePAM 1 MG TABLET PO ×2 (08:43→20:42)
[2020-10-16] MEDS: Gabapentin 600 MG TABLET PO ×3 (08:43→20:42)
--- NOTE | 2020-10-16 12:55 | PC.NURSE ---
PT WAS OBSERVED COMING OUT OF ANOTHER MALE PATIENTS ROOM. MALE PT NOW WEARING HER SWEATSHIRT AMD THEY WERE NOTICED TO BE SITTING SHOULDER TO SHOULDER IN THE KITCHEN AT THE TABLE. SHE WAVED TO THIS [employer] SO THIS [employer] WAVED BACK. SHE THEN APPROACHED THIS [employer] AND OTHER STAFF AT THE NURSES STATION ASKING IF WE HAD NOTHING BETTER TO DO THAN TO TALK ABOUT HER IN AN AGGRESSIVE MANNER. I STATED IT WAS BROUGHT TO MY ATTENTION THIS MALE PT WAS WEARING HER SWEATSHIRT AND THATS WHAT WE WERE LOOKING AT. SHE SAID WE SHOULD FIND SOMETHING ELSE TO LOOK AT. I THEN TOLD THIS PATIENT NOT TO GIVE US THINGS TO TALK ABOUT, SHE SHE ASKED WHAT I MEANT. I TOLD HER WE HAVE TO BE AWARE OF WHAT GOES ON ON THE UNIT SHE WAS IN THE MALE PATIENTS ROOM. I WASNT IN THERE FUCKING HIM I TOLD HER WE HAVE WORKED HERE MANY YEARS AND WE KNOW THINGS THAT CAN AND HAVE HAPPENED. 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
[2020-10-16] MEDS: clonazePAM 0.5 MG TABLET PO (13:03)
--- NOTE | 2020-10-16 15:58 | HO.PSYCHPN ---
Subjective Subjective Date of Service: 10/16/20 Reason For Visit: SI Interim History: Pt seen in male peer room, giving him a sweatshirt, pt reminded of boundaries and fact that she can't go into other pts room. She was dismissive and minimized incident but agreed not to do it again. Pt reports at times feeling like giving up, but as interview went on, pt future oriented looking forward to return eventually to [place]. She received message from old friends, made her feel cared for, although she reports chronic sense of emptiness. She denies SI/HI, no plan or intent. Review of Systems Review of Systems Yes all other systems are reviewed and are negative Constitutional: Reports no additional constitutional complaints, Denies body ache(s), Denies chills, Denies fever(s), Denies headache(s) and Denies weakness Eyes: Reports no additional eye complaints and Denies change in vision Reports system reviewed and no additional complaints, except as documented, Denies dizziness, Denies headache(s), Denies nasal congestion, Denies nasal discharge and Denies neck pain Cardiovascular: Reports no additional cardiovascular complaints, Denies chest pain, Denies leg edema and Denies dyspnea Respiratory: Reports no additional respiratory complaints, Denies cough and Denies dyspnea Gastrointestinal: Reports no additional gastrointestinal complaints, Denies abdominal pain, Denies diarrhea, Denies nausea and Denies vomiting Musculoskeletal: Reports no additional musculoskeletal complaints, Denies back pain, Denies arthralgias, Denies joint swelling, Denies neck pain, Denies numbness and Denies tingling Skin/Breast: Reports system reviewed and no additional complaints, except as docu and Denies rash Reports system reviewed and no additional complaints, except as documented, Denies Abnormal speech present, Denies dizziness, Denies headache(s), Denies numbness, Denies tingling and Denies weakness Psychiatric: Reports depression, Denies visual hallucinations, Denies hallucinations, Denies tactile hallucinations, Denies homicidal ideation and Reports suicidal ideation Mental Status Exam Mental Status Exam Narrative: Appearance: wearing hospital gown, disheveled, in NAD Behavior: cooperative Psychomotor: no agitation or retardation noted Speech: clear, normal rate/rhythm/volume, spontaneous TP: linear TC: no signs of psychosis, feeling lonely, crashing Mood: depressed Affect: blunted, congruent AH/VH: none Delusions: none Insight/judgment: poor x 2. Memory/cog: alert, oriented x 4. Grossly intact to conversational testing. Diagnostics Vital Signs (24Hr): Vital Signs - 24 hr 10/15/20 20:03 10/16/20 06:25 Temperature 98.0 F Pulse Rate 67 85 Respiratory Rate 18 Blood Pressure 120/57 L 127/58 L Pulse Oximetry 98 Body Mass Index 43.4 Labs Results: 10/10/20 14:15 10/10/20 14:15 Medications Medications Current Medications Generic Name Dose Route Start Last Admin Trade Name Freq PRN Reason Stop Dose Admin Acetaminophen 650 mg 10/10/20 19:26 10/14/20 09:53 Acetaminophen 325 Mg Tablet PO 650 mg Q6H PRN Administration Headache/Pain Mild Scale (1-3) Al Hydroxide/Mg Hydroxide 30 ml 10/10/20 19:26 10/15/20 12:18 Magnesium Hydrox/Alum Hydrox 30 Ml Oral.Susp PO 30 ml Q6H PRN Administration Heartburn/Nausea Clonazepam 1 mg 10/14/20 21:00 10/16/20 08:43 Clonazepam 1 Mg Tablet PO 1 mg BID KIMO Administration Clonazepam 0.5 mg 10/14/20 13:28 10/16/20 13:03 Clonazepam 0.5 Mg Tablet PO 0.5 mg DAILY PRN Administration severe anxiety Clonidine HCl 0.1 mg 10/12/20 21:00 10/15/20 20:03 Clonidine Hcl 0.1 Mg Tablet PO 0.1 mg BEDTIME KIMO Administration Protocol Gabapentin 600 mg 10/12/20 15:00 10/16/20 14:36 Gabapentin 600 Mg Tablet PO 600 mg TID KIMO Administration Hydroxyzine HCl 50 mg 10/10/20 19:36 10/13/20 14:54 Hydroxyzine Hcl 50 Mg Tablet PO 50 mg QID PRN Administration Anxiety Ibuprofen 800 mg 10/11/20 20:53 10/11/20 21:05 Ibuprofen 800 Mg Tablet PO 800 mg Q8H PRN Administration Pain, Moderate (Pain Scale 4-6 Magnesium Hydroxide 30 ml 10/10/20 19:26 Milk Of Magnesia 30 Ml Oral.Susp PO DAILY PRN Constipation Methadone HCl 80 mg 10/12/20 09:15 10/16/20 08:43 Methadone Hcl 1 Mg/0.1 Ml Oral.Conc PO 80 mg DAILY KIMO Administration Trazodone HCl 100 mg 10/14/20 21:00 10/15/20 20:02 Trazodone Hcl 100 Mg Tablet PO 100 mg BEDTIME KIMO Administration Venlafaxine HCl 37.5 mg 10/16/20 09:00 10/16/20 08:42 Venlafaxine Hcl Er 37.5 Mg Cap.Er.24h PO 37.5 mg DAILY KIMO Administration Venlafaxine HCl 75 mg 10/16/20 09:00 10/16/20 08:43 Venlafaxine Hcl Er 75 Mg Cap.Er.24h PO 75 mg DAILY KIMO Administration Allergies Allergies Allergy/AdvReac Type Severity Reaction Status Date / Time No Known Allergies Allergy Unverified 06/04/20 17:17 Assessment & Plan Assessment & Plan (1) MDD (major depressive disorder), recurrent episode, moderate: Status: Acute Code(s): F33.1 - Major depressive disorder, recurrent, moderate Assessment and Plan: 1. Increase Effexor to 112.5mg po daily. 2. Continue clonidine to 0.1mg po QHS 3. Decrease Seroquel to 50mg po qhs. 4. Continue gabapentin 600mg po TID- questioning of nystagmus/twitching like movement related to gabapentin, not seroquel 5. continue clonazepam, but pt aware rx will be from OP provider. Greater than 50% of the session was spent on counseling and/or coordination of care Reason for contiued inpatient stay Substantial Risk for: harm to self
[2020-10-16 16:45] VITALS: BP 126/62; PULSE 62; TEMP 36.4
[2020-10-16 20:42] VITALS: BP 106/62; PULSE 71
[2020-10-16] MEDS: cloNIDine HCL 0.1 MG TABLET PO (20:42)
[2020-10-16] MEDS: traZODone HCL 100 MG TABLET PO (20:42)
[2020-10-17 06:10] VITALS: BP 91/53; PULSE 55; RESP 16; TEMP 36.8; O2SAT 97
[2020-10-17] MEDS: Venlafaxine HCl ER 37.5 MG CAP.ER.24H PO (09:14)
[2020-10-17] MEDS: Venlafaxine HCl ER 75 MG CAP.ER.24H PO (09:14)
[2020-10-17] MEDS: Gabapentin 600 MG TABLET PO ×3 (09:14→20:28)
[2020-10-17] MEDS: clonazePAM 1 MG TABLET PO ×2 (09:15→20:28)
--- NOTE | 2020-10-17 09:24 | HO.PSYCHPN ---
Subjective Subjective Date of Service: 10/17/20 Reason For Visit: SI Interim History: Remains depressed. Now talking about ECT having helped her. Asked about Clonazepam. No SI but feels fragile. Review of Systems Review of Systems Yes all other systems are reviewed and are negative Constitutional: Reports no additional constitutional complaints, Denies body ache(s), Denies chills, Denies fever(s), Denies headache(s) and Denies weakness Eyes: Reports no additional eye complaints and Denies change in vision Reports system reviewed and no additional complaints, except as documented, Denies dizziness, Denies headache(s), Denies nasal congestion, Denies nasal discharge and Denies neck pain Cardiovascular: Reports no additional cardiovascular complaints, Denies chest pain, Denies leg edema and Denies dyspnea Respiratory: Reports no additional respiratory complaints, Denies cough and Denies dyspnea Gastrointestinal: Reports no additional gastrointestinal complaints, Denies abdominal pain, Denies diarrhea, Denies nausea and Denies vomiting Musculoskeletal: Reports no additional musculoskeletal complaints, Denies back pain, Denies arthralgias, Denies joint swelling, Denies neck pain, Denies numbness and Denies tingling Skin/Breast: Reports system reviewed and no additional complaints, except as docu and Denies rash Reports system reviewed and no additional complaints, except as documented, Denies Abnormal speech present, Denies dizziness, Denies headache(s), Denies numbness, Denies tingling and Denies weakness Psychiatric: Reports depression, Denies visual hallucinations, Denies hallucinations, Denies tactile hallucinations, Denies homicidal ideation and Reports suicidal ideation Mental Status Exam Mental Status Exam Narrative: Appearance: wearing hospital gown, disheveled, in NAD Behavior: cooperative Psychomotor: no agitation or retardation noted Speech: clear, normal rate/rhythm/volume, spontaneous TP: linear TC: no signs of psychosis, feeling lonely, crashing Mood: depressed Affect: blunted, congruent AH/VH: none Delusions: none Insight/judgment: poor x 2. Memory/cog: alert, oriented x 4. Grossly intact to conversational testing. Diagnostics Vital Signs (24Hr): Vital Signs - 24 hr 10/16/20 16:45 10/16/20 20:42 10/17/20 06:10 Temperature 97.6 F 98.2 F Pulse Rate 62 71 55 Respiratory Rate 16 Blood Pressure 126/62 106/62 91/53 L Pulse Oximetry 97 Body Mass Index 43.4 Labs Results: 10/10/20 14:15 10/10/20 14:15 Medications Medications Current Medications Generic Name Dose Route Start Last Admin Trade Name Reece PRN Reason Stop Dose Admin Acetaminophen 650 mg 10/10/20 19:26 10/14/20 09:53 Acetaminophen 325 Mg Tablet PO 650 mg Q6H PRN Administration Headache/Pain Mild Scale (1-3) Al Hydroxide/Mg Hydroxide 30 ml 10/10/20 19:26 10/15/20 12:18 Magnesium Hydrox/Alum Hydrox 30 Ml Oral.Susp PO 30 ml Q6H PRN Administration Heartburn/Nausea Clonazepam 1 mg 10/14/20 21:00 10/17/20 09:15 Clonazepam 1 Mg Tablet PO 1 mg BID KIMO Administration Clonazepam 0.5 mg 10/14/20 13:28 10/16/20 13:03 Clonazepam 0.5 Mg Tablet PO 0.5 mg DAILY PRN Administration severe anxiety Clonidine HCl 0.1 mg 10/12/20 21:00 10/16/20 20:42 Clonidine Hcl 0.1 Mg Tablet PO 0.1 mg BEDTIME KIMO Administration Protocol Gabapentin 600 mg 10/12/20 15:00 10/17/20 09:14 Gabapentin 600 Mg Tablet PO 600 mg TID KIMO Administration Hydroxyzine HCl 50 mg 10/10/20 19:36 10/13/20 14:54 Hydroxyzine Hcl 50 Mg Tablet PO 50 mg QID PRN Administration Anxiety Ibuprofen 800 mg 10/11/20 20:53 10/11/20 21:05 Ibuprofen 800 Mg Tablet PO 800 mg Q8H PRN Administration Pain, Moderate (Pain Scale 4-6 Magnesium Hydroxide 30 ml 10/10/20 19:26 Milk Of Magnesia 30 Ml Oral.Susp PO DAILY PRN Constipation Methadone HCl 80 mg 10/12/20 09:15 10/17/20 09:14 Methadone Hcl 1 Mg/0.1 Ml Oral.Conc PO 80 mg DAILY KIMO Administration Trazodone HCl 100 mg 10/14/20 21:00 10/16/20 20:42 Trazodone Hcl 100 Mg Tablet PO 100 mg BEDTIME KIMO Administration Venlafaxine HCl 37.5 mg 10/16/20 09:00 10/17/20 09:14 Venlafaxine Hcl Er 37.5 Mg Cap.Er.24h PO 37.5 mg DAILY KIMO Administration Venlafaxine HCl 75 mg 10/16/20 09:00 10/17/20 09:14 Venlafaxine Hcl Er 75 Mg Cap.Er.24h PO 75 mg DAILY KIMO Administration Allergies Allergies Allergy/AdvReac Type Severity Reaction Status Date / Time No Known Allergies Allergy Unverified 06/04/20 17:17 Assessment & Plan Assessment & Plan (1) MDD (major depressive disorder), recurrent episode, moderate: Status: Acute Code(s): F33.1 - Major depressive disorder, recurrent, moderate Assessment and Plan: 1. Increase Effexor to 112.5mg po daily. 2. Continue clonidine to 0.1mg po QHS 3. Decrease Seroquel to 50mg po qhs. 4. Continue gabapentin 600mg po TID- questioning of nystagmus/twitching like movement related to gabapentin, not seroquel 5. continue clonazepam, but pt aware rx will be from OP provider. Ct ECT discussion Greater than 50% of the session was spent on counseling and/or coordination of care Reason for contiued inpatient stay Substantial Risk for: harm to self
[2020-10-17 16:51] VITALS: BP 115/55; PULSE 61; TEMP 35.9
[2020-10-17 20:28] VITALS: BP 115/66; PULSE 73
[2020-10-17] MEDS: cloNIDine HCL 0.1 MG TABLET PO (20:28)
[2020-10-17] MEDS: traZODone HCL 100 MG TABLET PO (20:28)
[2020-10-18] MEDS: hydrOXYzine HCL 50 MG TABLET PO ×2 (02:12→11:37)
[2020-10-18] MEDS: clonazePAM 0.5 MG TABLET PO (02:12)
[2020-10-18 06:00] VITALS: BP 100/55; BP 97/53; PULSE 53; PULSE 77; TEMP 36.6
--- NOTE | 2020-10-18 08:09 | HO.PSYCHPN ---
Subjective Subjective Date of Service: 10/18/20 Reason For Visit: SI Interim History: Remains depressed. Now talking about ECT having helped her. Asked about Clonazepam. No SI but feels fragile. Will increase Trazodone. Review of Systems Review of Systems Yes all other systems are reviewed and are negative Constitutional: Reports no additional constitutional complaints, Denies body ache(s), Denies chills, Denies fever(s), Denies headache(s) and Denies weakness Eyes: Reports no additional eye complaints and Denies change in vision Reports system reviewed and no additional complaints, except as documented, Denies dizziness, Denies headache(s), Denies nasal congestion, Denies nasal discharge and Denies neck pain Cardiovascular: Reports no additional cardiovascular complaints, Denies chest pain, Denies leg edema and Denies dyspnea Respiratory: Reports no additional respiratory complaints, Denies cough and Denies dyspnea Gastrointestinal: Reports no additional gastrointestinal complaints, Denies abdominal pain, Denies diarrhea, Denies nausea and Denies vomiting Musculoskeletal: Reports no additional musculoskeletal complaints, Denies back pain, Denies arthralgias, Denies joint swelling, Denies neck pain, Denies numbness and Denies tingling Skin/Breast: Reports system reviewed and no additional complaints, except as docu and Denies rash Reports system reviewed and no additional complaints, except as documented, Denies Abnormal speech present, Denies dizziness, Denies headache(s), Denies numbness, Denies tingling and Denies weakness Psychiatric: Reports depression, Denies visual hallucinations, Denies hallucinations, Denies tactile hallucinations, Denies homicidal ideation and Reports suicidal ideation Mental Status Exam Mental Status Exam Narrative: Appearance: wearing hospital gown, disheveled, in NAD Behavior: cooperative Psychomotor: no agitation or retardation noted Speech: clear, normal rate/rhythm/volume, spontaneous TP: linear TC: no signs of psychosis, feeling lonely, crashing Mood: depressed Affect: blunted, congruent AH/VH: none Delusions: none Insight/judgment: poor x 2. Memory/cog: alert, oriented x 4. Grossly intact to conversational testing. Diagnostics Vital Signs (24Hr): Vital Signs - 24 hr 10/17/20 16:51 10/17/20 20:28 10/18/20 06:00 Temperature 96.7 F L 97.8 F Pulse Rate 61 73 77 Blood Pressure 115/55 L 115/66 100/55 L Body Mass Index 43.4 Labs Results: 10/10/20 14:15 10/10/20 14:15 Medications Medications Current Medications Generic Name Dose Route Start Last Admin Trade Name Migueq PRN Reason Stop Dose Admin Acetaminophen 650 mg 10/10/20 19:26 10/14/20 09:53 Acetaminophen 325 Mg Tablet PO 650 mg Q6H PRN Administration Headache/Pain Mild Scale (1-3) Al Hydroxide/Mg Hydroxide 30 ml 10/10/20 19:26 10/15/20 12:18 Magnesium Hydrox/Alum Hydrox 30 Ml Oral.Susp PO 30 ml Q6H PRN Administration Heartburn/Nausea Clonazepam 1 mg 10/14/20 21:00 10/17/20 20:28 Clonazepam 1 Mg Tablet PO 1 mg BID KIMO Administration Clonazepam 0.5 mg 10/14/20 13:28 10/18/20 02:12 Clonazepam 0.5 Mg Tablet PO 0.5 mg DAILY PRN Administration severe anxiety Clonidine HCl 0.1 mg 10/12/20 21:00 10/17/20 20:28 Clonidine Hcl 0.1 Mg Tablet PO 0.1 mg BEDTIME KIMO Administration Protocol Gabapentin 600 mg 10/12/20 15:00 10/17/20 20:28 Gabapentin 600 Mg Tablet PO 600 mg TID KIMO Administration Hydroxyzine HCl 50 mg 10/10/20 19:36 10/18/20 02:12 Hydroxyzine Hcl 50 Mg Tablet PO 50 mg QID PRN Administration Anxiety Ibuprofen 800 mg 10/11/20 20:53 10/11/20 21:05 Ibuprofen 800 Mg Tablet PO 800 mg Q8H PRN Administration Pain, Moderate (Pain Scale 4-6 Magnesium Hydroxide 30 ml 10/10/20 19:26 Milk Of Magnesia 30 Ml Oral.Susp PO DAILY PRN Constipation Methadone HCl 80 mg 10/12/20 09:15 10/17/20 09:14 Methadone Hcl 1 Mg/0.1 Ml Oral.Conc PO 80 mg DAILY KIMO Administration Trazodone HCl 100 mg 10/14/20 21:00 10/17/20 20:28 Trazodone Hcl 100 Mg Tablet PO 100 mg BEDTIME KIMO Administration Venlafaxine HCl 37.5 mg 10/16/20 09:00 10/17/20 09:14 Venlafaxine Hcl Er 37.5 Mg Cap.Er.24h PO 37.5 mg DAILY KIMO Administration Venlafaxine HCl 75 mg 10/16/20 09:00 10/17/20 09:14 Venlafaxine Hcl Er 75 Mg Cap.Er.24h PO 75 mg DAILY KIMO Administration Allergies Allergies Allergy/AdvReac Type Severity Reaction Status Date / Time No Known Allergies Allergy Unverified 06/04/20 17:17 Assessment & Plan Assessment & Plan (1) MDD (major depressive disorder), recurrent episode, moderate: Status: Acute Code(s): F33.1 - Major depressive disorder, recurrent, moderate Assessment and Plan: 1. Increase Effexor to 112.5mg po daily. 2. Continue clonidine to 0.1mg po QHS 3. Decrease Seroquel to 50mg po qhs. 4. Continue gabapentin 600mg po TID- questioning of nystagmus/twitching like movement related to gabapentin, not seroquel 5. continue clonazepam, but pt aware rx will be from OP provider. Ct ECT discussion. MR x 1 Traz Greater than 50% of the session was spent on counseling and/or coordination of care Reason for contiued inpatient stay Substantial Risk for: harm to self
[2020-10-18] MEDS: clonazePAM 1 MG TABLET PO ×2 (08:34→21:08)
[2020-10-18] MEDS: Gabapentin 600 MG TABLET PO ×3 (08:34→21:07)
[2020-10-18] MEDS: Venlafaxine HCl ER 37.5 MG CAP.ER.24H PO (08:34)
[2020-10-18] MEDS: Venlafaxine HCl ER 75 MG CAP.ER.24H PO (08:34)
[2020-10-18] MEDS: Acetaminophen 325 MG TABLET 650 MG PO (11:37)
[2020-10-18 13:28] VITALS: BP 109/57; PULSE 75; RESP 16; TEMP 36.8; O2SAT 96
[2020-10-18 16:44] VITALS: BP 99/58; PULSE 78; TEMP 36.1
--- NOTE | 2020-10-18 18:06 | PC.NURSE ---
Patient c/o feeling overheated (afebrile), fatigue and tingling in her head due to medication changes over the last [address] Hoffman was notified via [place] text; he replied that patient may choose whether she wants to take Effexor ER 75 mg tonight or Effexor 112.5 tonight. He also suggested that patient raise her legs while in bed and increase her fluid intake. Patient was given the information but she was not happy.
[2020-10-18 21:04] VITALS: BP 96/46; PULSE 62; TEMP 36.9
[2020-10-18] MEDS: traZODone HCL 100 MG TABLET PO (21:07)
[2020-10-18 21:27] VITALS: BP 145/67; PULSE 85
[2020-10-18] MEDS: cloNIDine HCL 0.1 MG TABLET PO (21:27)
--- NOTE | 2020-10-18 23:12 | PC.NURSE ---
Patient was cooperative with meds. As she was leaving the medication room door she noticed a female patient staring at her and started cursing and verbally threatening the other patient. She said Come on bitch, let's just take it out in the hallway . She was redirected by staff and went to her hospital room.
[2020-10-19 06:10] VITALS: BP 100/50; PULSE 60; RESP 16; TEMP 36.6; O2SAT 97
[2020-10-19] MEDS: clonazePAM 1 MG TABLET PO ×2 (09:15→20:32)
[2020-10-19] MEDS: Venlafaxine HCl ER 37.5 MG CAP.ER.24H PO (09:16)
[2020-10-19] MEDS: Gabapentin 600 MG TABLET PO ×2 (09:16→14:58)
[2020-10-19] MEDS: Venlafaxine HCl ER 75 MG CAP.ER.24H PO (09:16)
--- NOTE | 2020-10-19 15:31 | PC.NURSE ---
Redirected for poor boundaries with a male peer that was in crisis. Refused to walk away from staff that was attempting to help him. Swearing and yelling at female staff.
--- NOTE | 2020-10-19 16:52 | HO.PSYCHPN ---
Subjective Subjective Date of Service: 10/19/20 Reason For Visit: SI Interim History: Pt reports that she has some difficulty finding words, twiching/involuntary movement of almost whole body, nystagmus, which we had discussed most likely related to Gabapentin. Pt did agree to lower Gabapentin to 300mg po TID. Pt observed socializing, brighter affect with peers, but tends to present more tearful and dysphoric when meeting with treatment team. Pt reports intermittent suicidal ideation. But denies any plan or intent. She does report to get more clonazepam and states she feels as if no one is listening because clonazepam is not increased. Review of Systems Review of Systems Yes all other systems are reviewed and are negative Constitutional: Reports no additional constitutional complaints, Denies body ache(s), Denies chills, Denies fever(s), Denies headache(s) and Denies weakness Eyes: Reports no additional eye complaints and Denies change in vision Reports system reviewed and no additional complaints, except as documented, Denies dizziness, Denies headache(s), Denies nasal congestion, Denies nasal discharge and Denies neck pain Cardiovascular: Reports no additional cardiovascular complaints, Denies chest pain, Denies leg edema and Denies dyspnea Respiratory: Reports no additional respiratory complaints, Denies cough and Denies dyspnea Gastrointestinal: Reports no additional gastrointestinal complaints, Denies abdominal pain, Denies diarrhea, Denies nausea and Denies vomiting Musculoskeletal: Reports no additional musculoskeletal complaints, Denies back pain, Denies arthralgias, Denies joint swelling, Denies neck pain, Denies numbness and Denies tingling Skin/Breast: Reports system reviewed and no additional complaints, except as docu and Denies rash Reports system reviewed and no additional complaints, except as documented, Denies Abnormal speech present, Denies dizziness, Denies headache(s), Denies numbness, Denies tingling and Denies weakness Psychiatric: Reports depression, Denies visual hallucinations, Denies hallucinations, Denies tactile hallucinations, Denies homicidal ideation and Reports suicidal ideation Mental Status Exam Mental Status Exam Narrative: Appearance: wearing hospital gown, disheveled, in NAD Behavior: cooperative Psychomotor: no agitation or retardation noted Speech: clear, normal rate/rhythm/volume, spontaneous TP: linear TC: no signs of psychosis, feeling lonely, crashing Mood: depressed Affect: blunted, congruent AH/VH: none Delusions: none Insight/judgment: poor x 2. Memory/cog: alert, oriented x 4. Grossly intact to conversational testing. Diagnostics Vital Signs (24Hr): Vital Signs - 24 hr 10/18/20 21:04 10/18/20 21:27 10/19/20 06:10 Temperature 98.4 F 97.8 F Pulse Rate 62 85 60 Respiratory Rate 16 Blood Pressure 96/46 L 145/67 H 100/50 L Pulse Oximetry 97 Body Mass Index 43.4 Labs Results: 10/10/20 14:15 10/10/20 14:15 Medications Medications Current Medications Generic Name Dose Route Start Last Admin Trade Name Freq PRN Reason Stop Dose Admin Acetaminophen 650 mg 10/10/20 19:26 10/18/20 11:37 Acetaminophen 325 Mg Tablet PO 650 mg Q6H PRN Administration Headache/Pain Mild Scale (1-3) Al Hydroxide/Mg Hydroxide 30 ml 10/10/20 19:26 10/15/20 12:18 Magnesium Hydrox/Alum Hydrox 30 Ml Oral.Susp PO 30 ml Q6H PRN Administration Heartburn/Nausea Clonazepam 1 mg 10/14/20 21:00 10/19/20 09:15 Clonazepam 1 Mg Tablet PO 1 mg BID KIMO Administration Clonidine HCl 0.1 mg 10/12/20 21:00 10/18/20 21:27 Clonidine Hcl 0.1 Mg Tablet PO 0.1 mg BEDTIME KIMO Administration Protocol Gabapentin 300 mg 10/19/20 21:00 Gabapentin 300 Mg Capsule PO TID KIMO Hydroxyzine HCl 50 mg 10/10/20 19:36 10/18/20 11:37 Hydroxyzine Hcl 50 Mg Tablet PO 50 mg QID PRN Administration Anxiety Ibuprofen 800 mg 10/11/20 20:53 10/11/20 21:05 Ibuprofen 800 Mg Tablet PO 800 mg Q8H PRN Administration Pain, Moderate (Pain Scale 4-6 Magnesium Hydroxide 30 ml 10/10/20 19:26 Milk Of Magnesia 30 Ml Oral.Susp PO DAILY PRN Constipation Methadone HCl 80 mg 10/12/20 09:15 10/19/20 09:15 Methadone Hcl 1 Mg/0.1 Ml Oral.Conc PO 80 mg DAILY KIMO Administration Trazodone HCl 100 mg 10/14/20 21:00 10/18/20 21:07 Trazodone Hcl 100 Mg Tablet PO 100 mg BEDTIME KIMO Administration Venlafaxine HCl 37.5 mg 10/16/20 09:00 10/19/20 09:16 Venlafaxine Hcl Er 37.5 Mg Cap.Er.24h PO 37.5 mg DAILY KIMO Administration Venlafaxine HCl 75 mg 10/16/20 09:00 10/19/20 09:16 Venlafaxine Hcl Er 75 Mg Cap.Er.24h PO 75 mg DAILY KIMO Administration Allergies Allergies Allergy/AdvReac Type Severity Reaction Status Date / Time No Known Allergies Allergy Unverified 06/04/20 17:17 Assessment & Plan Assessment & Plan (1) MDD (major depressive disorder), recurrent episode, moderate: Status: Acute Code(s): F33.1 - Major depressive disorder, recurrent, moderate Assessment and Plan: 1. Continue Effexor to 112.5mg po daily. 2. Continue clonidine to 0.1mg po QHS 3. Continue Seroquel to 50mg po qhs. 4. decrease gabapentin to 300mg po TID- questioning of nystagmus/twitching like movement related to gabapentin, not seroquel 5. continue clonazepam, but pt aware rx will be from OP provider. Ct ECT discussion. MR x 1 Traz Greater than 50% of the session was spent on counseling and/or coordination of care Reason for contiued inpatient stay Substantial Risk for: harm to self
[2020-10-19 18:00] VITALS: BP 114/59; PULSE 79; TEMP 36.7
[2020-10-19 20:31] VITALS: BP 114/59; PULSE 79
[2020-10-19] MEDS: cloNIDine HCL 0.1 MG TABLET PO (20:31)
[2020-10-19] MEDS: traZODone HCL 100 MG TABLET PO (20:31)
[2020-10-19] MEDS: Gabapentin 300 MG CAPSULE PO (20:32)
[2020-10-20 06:20] VITALS: BP 99/50; PULSE 58; RESP 16; TEMP 37.1; O2SAT 96
[2020-10-20] MEDS: Venlafaxine HCl ER 75 MG CAP.ER.24H PO (08:50)
[2020-10-20] MEDS: Venlafaxine HCl ER 37.5 MG CAP.ER.24H PO (08:50)
[2020-10-20] MEDS: clonazePAM 1 MG TABLET PO ×2 (08:50→22:07)
[2020-10-20] MEDS: Gabapentin 300 MG CAPSULE PO ×3 (08:50→22:07)
--- NOTE | 2020-10-20 17:19 | HO.PSYCHPN ---
Subjective Subjective Date of Service: 10/20/20 Reason For Visit: SI Interim History: Pt reports that she has some difficulty finding words, twiching/involuntary movement of almost whole body, nystagmus, which we had discussed most likely related to Gabapentin. Pt did agree to lower Gabapentin to 300mg po TID. Pt observed socializing, brighter affect with peers, but tends to present more tearful and dysphoric when meeting with treatment team. Pt reports intermittent suicidal ideation. But denies any plan or intent. She does report to get more clonazepam and states she feels as if no one is listening because clonazepam is not increased. Review of Systems Review of Systems Yes all other systems are reviewed and are negative Constitutional: Reports no additional constitutional complaints, Denies body ache(s), Denies chills, Denies fever(s), Denies headache(s) and Denies weakness Eyes: Reports no additional eye complaints and Denies change in vision Reports system reviewed and no additional complaints, except as documented, Denies dizziness, Denies headache(s), Denies nasal congestion, Denies nasal discharge and Denies neck pain Cardiovascular: Reports no additional cardiovascular complaints, Denies chest pain, Denies leg edema and Denies dyspnea Respiratory: Reports no additional respiratory complaints, Denies cough and Denies dyspnea Gastrointestinal: Reports no additional gastrointestinal complaints, Denies abdominal pain, Denies diarrhea, Denies nausea and Denies vomiting Musculoskeletal: Reports no additional musculoskeletal complaints, Denies back pain, Denies arthralgias, Denies joint swelling, Denies neck pain, Denies numbness and Denies tingling Skin/Breast: Reports system reviewed and no additional complaints, except as docu and Denies rash Reports system reviewed and no additional complaints, except as documented, Denies Abnormal speech present, Denies dizziness, Denies headache(s), Denies numbness, Denies tingling and Denies weakness Psychiatric: Reports depression, Denies visual hallucinations, Denies hallucinations, Denies tactile hallucinations, Denies homicidal ideation and Reports suicidal ideation Mental Status Exam Mental Status Exam Narrative: Appearance: wearing hospital gown, disheveled, in NAD Behavior: cooperative Psychomotor: no agitation or retardation noted Speech: clear, normal rate/rhythm/volume, spontaneous TP: linear TC: no signs of psychosis, feeling lonely, crashing Mood: depressed Affect: blunted, congruent AH/VH: none Delusions: none Insight/judgment: poor x 2. Memory/cog: alert, oriented x 4. Grossly intact to conversational testing. Diagnostics Vital Signs (24Hr): Vital Signs - 24 hr 10/19/20 18:00 10/19/20 20:31 10/20/20 06:20 Temperature 98.0 F 98.7 F Pulse Rate 79 79 58 Respiratory Rate 16 Blood Pressure 114/59 L 114/59 L 99/50 L Pulse Oximetry 96 Body Mass Index 43.4 Labs Results: 10/10/20 14:15 10/10/20 14:15 Medications Medications Current Medications Generic Name Dose Route Start Last Admin Trade Name Freq PRN Reason Stop Dose Admin Acetaminophen 650 mg 10/10/20 19:26 10/18/20 11:37 Acetaminophen 325 Mg Tablet PO 650 mg Q6H PRN Administration Headache/Pain Mild Scale (1-3) Al Hydroxide/Mg Hydroxide 30 ml 10/10/20 19:26 10/15/20 12:18 Magnesium Hydrox/Alum Hydrox 30 Ml Oral.Susp PO 30 ml Q6H PRN Administration Heartburn/Nausea Clonazepam 1 mg 10/14/20 21:00 10/20/20 08:50 Clonazepam 1 Mg Tablet PO 1 mg BID KIMO Administration Clonidine HCl 0.1 mg 10/12/20 21:00 10/19/20 20:31 Clonidine Hcl 0.1 Mg Tablet PO 0.1 mg BEDTIME KIMO Administration Protocol Gabapentin 300 mg 10/19/20 21:00 10/20/20 14:39 Gabapentin 300 Mg Capsule PO 300 mg TID KIMO Administration Hydroxyzine HCl 50 mg 10/10/20 19:36 10/18/20 11:37 Hydroxyzine Hcl 50 Mg Tablet PO 50 mg QID PRN Administration Anxiety Ibuprofen 800 mg 10/11/20 20:53 10/11/20 21:05 Ibuprofen 800 Mg Tablet PO 800 mg Q8H PRN Administration Pain, Moderate (Pain Scale 4-6 Magnesium Hydroxide 30 ml 10/10/20 19:26 Milk Of Magnesia 30 Ml Oral.Susp PO DAILY PRN Constipation Methadone HCl 80 mg 10/12/20 09:15 10/20/20 08:50 Methadone Hcl 1 Mg/0.1 Ml Oral.Conc PO 80 mg DAILY KIMO Administration Trazodone HCl 100 mg 10/14/20 21:00 10/19/20 20:31 Trazodone Hcl 100 Mg Tablet PO 100 mg BEDTIME KIMO Administration Venlafaxine HCl 37.5 mg 10/16/20 09:00 10/20/20 08:50 Venlafaxine Hcl Er 37.5 Mg Cap.Er.24h PO 37.5 mg DAILY KIMO Administration Venlafaxine HCl 75 mg 10/16/20 09:00 10/20/20 08:50 Venlafaxine Hcl Er 75 Mg Cap.Er.24h PO 75 mg DAILY KIMO Administration Allergies Allergies Allergy/AdvReac Type Severity Reaction Status Date / Time No Known Allergies Allergy Unverified 06/04/20 17:17 Assessment & Plan Assessment & Plan (1) MDD (major depressive disorder), recurrent episode, moderate: Status: Acute Code(s): F33.1 - Major depressive disorder, recurrent, moderate Assessment and Plan: 1. Continue Effexor to 112.5mg po daily. 2. Continue clonidine to 0.1mg po QHS 3. Continue Seroquel to 50mg po qhs. 4. decrease gabapentin to 300mg po TID- questioning of nystagmus/twitching like movement related to gabapentin, not seroquel 5. continue clonazepam, but pt aware rx will be from OP provider. Ct ECT discussion. MR x 1 Traz Greater than 50% of the session was spent on counseling and/or coordination of care Reason for contiued inpatient stay Substantial Risk for: harm to self
[2020-10-20 22:07] VITALS: BP 130/76; PULSE 65
[2020-10-20] MEDS: cloNIDine HCL 0.1 MG TABLET PO (22:07)
[2020-10-20] MEDS: traZODone HCL 100 MG TABLET PO (22:07)
[2020-10-21 06:50] VITALS: BP 100/55; PULSE 60; RESP 16; TEMP 36.4; O2SAT 98
[2020-10-21] MEDS: clonazePAM 1 MG TABLET PO (08:21)
[2020-10-21] MEDS: Venlafaxine HCl ER 75 MG CAP.ER.24H PO (08:21)
[2020-10-21] MEDS: Gabapentin 300 MG CAPSULE PO (08:21)
[2020-10-21] MEDS: Venlafaxine HCl ER 37.5 MG CAP.ER.24H PO (08:21)
--- NOTE | 2020-10-21 11:55 | P.DS_ITS ---
DS: Providers Provider Date of Service: 10/30/20 Date of admission: 10/10/20 19:26 Primary care physician: Unknown Physician Attending physician on discharge: Precious Cameron DS: Diagnosis Discharge Diagnosis (1) MDD (major depressive disorder), recurrent episode, moderate: Status: Acute DS: Medications Discharge Medications Home Medications: Home Medications Medication Instructions Recorded Confirmed clonazepam 1 tab PO BID PRN 10/10/20 10/10/20 gabapentin 1 cap PO TID 10/10/20 10/10/20 Previous Rx's Medication Instructions Recorded clonidine HCl 0.1 mg PO BEDTIME 15 Days #15 tab 10/21/20 trazodone 100 mg PO BEDTIME 15 Days #15 tab 10/21/20 venlafaxine 37.5 mg PO DAILY 15 Days #15 cap 10/21/20 venlafaxine 75 mg PO DAILY 15 Days #15 cap 10/21/20 Discharge Plan Discharge Patient Disposition: Home, Self-Care Referrals: Therapist: Flori ([facility]) [Other] - 10/23/20 2:00 pm Christiano Wang MD [Physician] - (OFFICE WILL CALL PT. WITH APPOINTMENT DATE.) Physician,Unknown [Primary Care Provider] - Discharge Medications: New clonidine HCl 0.1 mg Tablet 0.1 mg PO BEDTIME 15 Days Qty: 15 RF: 0 trazodone 100 mg Tablet 100 mg PO BEDTIME 15 Days Qty: 15 RF: 0 venlafaxine 37.5 mg Capsule,Extended Release 24hr 37.5 mg PO DAILY 15 Days Qty: 15 RF: 0 venlafaxine 75 mg Capsule,Extended Release 24hr 75 mg PO DAILY 15 Days Qty: 15 RF: 0 Continued clonazepam 1 mg tablet 1 tab PO BID PRN (Reason: anxiety) RF: 0 gabapentin 300 mg capsule 1 cap PO TID RF: 0 Discontinued quetiapine 25 mg tablet 1 tab PO BID PRN (Reason: Agitation) RF: 0 hydroxyzine HCl 50 mg tablet 1 tab PO QID PRN (Reason: Anxiety) RF: 0 citalopram 20 mg tablet 1 tab PO DAILY RF: 0 benztropine 1 mg tablet 1 tab PO DAILY RF: 0 lamotrigine 100 mg tablet 1.5 tab PO DAILY RF: 0 quetiapine 400 mg tablet 1 tab PO BEDTIME RF: 0 No Action clonazepam [Klonopin] 1 mg tablet 1 mg PO TID PRN (Reason: anxiety) Qty: 20 RF: 0 Discharge Orders: Discharge Order (Routine); Ordered 10/21/20 Ordered By: Precious Cameron Diet: regular diet Activity on Discharge: As tolerated Stand Alone Forms: Patient Portal Discharge page Visit Report Forms: Patient Portal Discharge page Care Plan Goals: 1. Follow up with referrals 2. Take medications as prescribed. Health Concerns: 1. Follow up with PCP Plan of Treatment: 1. Follow up with referrals 2. Take medications as prescribed. Discharge Date/Time: 10/21/20 13:20 Mental Status Exam Mental Status Exam Narrative: Appearance: wearing hospital gown, disheveled, in NAD Behavior: cooperative Psychomotor: no agitation or retardation noted Speech: clear, normal rate/rhythm/volume, spontaneous TP: linear TC: no signs of psychosis, future oriented Mood: better Affect: brighter, congruent AH/VH: none Delusions: none Insight/judgment: fair x 2. Memory/cog: alert, oriented x 4. Grossly intact to conversational testing. DS: Summary Hospital Course Hospital Course: HPI:Ms. Soler is a 39 year-old woman with hx of PTSD, MDD, polusubstance use including opiates and cocaine who self presented to [facility] ED reporting increased depression, suicidal ideation in context of recent loss, his uncle , she feels isolated and lonely. In the ED, utox positive for canabinnoids, benzo NO COCAINE. On the unit, pt reports feeling overwhelmed, not sleeping/eating well, extremely tired, I just crashed. She endorses suicidal ideation but denies any plan or intent to hurt herself. She reports two months ago she OD on many of my psych meds and states she was admitted to the ICU at [facility]. She reports feeling lonely, not having much supports from family or friends. She reports not having a relationship with her father or brother. She reports she is currently on unemployment due to covid, used to work as rn orthopedic. She denies hx of VH/AH. Past Psychiatric History: Inpatient admission: multiple inpatient admissions since 2009. Last documented admission per [facility] crisis is 02/2017 at [place]. However, pt reports recent admission to [facility] 2 months ago post suicide attempt. OP: pt reports Valorie De La Cruz in [place] but has not seen her recently. Suicide attempts: total of 2; OD Jul 2020 (ICU, inpt admission after); 2004 OD. PAst medication trials: prazosin (not effective), clonidine (helpful), lamictal (not helpful), celexa, effexor (worked in past), seroquel (jerk-like movement of upper extremities) HOSPITAL COURSE: Ms. Soler presented as very tearful, depressed, reporting suicidal ideation without a plan. She continued to grief of her mother and felt guilty about it. She reported feeling hopeless/helpless. We discussed risks, benefits and alternative treatment options. She reports gabapentin and clonazepam had been helpful for her. We discussed risks of misuse abuse of controlled substances given hx of substance use. She understood she had to request refill for these medications with OP psychiatric providers. She reported minimal efficacy with celexa for several years. She agreed to switch to Venlafaxine, which was titrated to 112.5mg po daily. She insisted on increased clonazepam which she was informed was not going to happen. Her affect gradually was bright. She was social with select peers. She had poor boundaries with peers and had to be reminded of this. She reported decreased depression. She denied suicidal ideation. She reported improved sleep and appetite. She was offered to step down to [facility] but she declined. She agreed to continue OP psychiatric treatment. Status at Discharge Cognitive/behavioral status at discharge: Pt denied suicidal ideation. Her affect was bright congruent with reported mood. There were no incidences of disruptive behaviors nor use of restraints. She was future oriented. No SI/HI. Functional status at discharge: independent ambulation Overall status at discharge: patient is back to baseline Time Spent with Patient Time attestation: Total time spent providing and/or coordinating discharge services:
--- NOTE | 2020-10-21 12:38 | PC.NURSE ---
pt is being discharged on 10/21/2020 at 1300. PT IS LESS LABILE THAN UPON ADMISSION. SHE STATES THAT THE MEDICATIONS HAVE BEEN SOMEWHAT HELPING . HER DEPRESSIONA ND ANXIETY ARE IMPROVING. PT DENIES SI/HI. PT DENIES ANY URGES TO HARM HERSELF OR OTHERS. SHE DOES NOT CURRENTLY HAVE ANY CRAVING FOR DRUGS OR ALCOHOL. PT DOES NOT HAVE AUDITORY OR VISUAL HALLUCINATIONS. SHE REPORTS BEING READY TO LEAVE THIS UNIT AND GET ON WITH HER LIFE . PT WAS ABLE TO MAKE FRIENDS WITH PEERS ON THE UNIT AND capable of advocating for her needs. pt is independently performing ADLs. She reports that she is eating very well, however, her sleeping habits still need improvement. Pt has been educated on medication compliance and the importance of sobriety. Pts paperwork will be faxed to her providers per protocol.
== END 2020-10-21 13:20 | disposition home or self-care (01) | DRG 885 ==
LOC: HO.ED 18:47 → HO.PM5 19:30
PROVIDERS: Nurse Practitioner Family; Admitting Provider Social Worker; Emergency Provider Internal Medicine; Visit Provider Social Worker
DX: F33.1 Major depressive disorder, recurrent, moderate (principal); R45.851 Suicidal ideations; F43.10 Post-traumatic stress disorder, unspecified; F17.210 Nicotine dependence, cigarettes, uncomplicated; Z20.822 Contact with and (suspected) exposure to COVID-19; Z71.6 Tobacco abuse counseling; Z91.5 Personal history of self-harm; Z79.899 Other long term (current) drug therapy
CPT/HCPCS: 36415; 80048; 80061; 80076; 80307; 80320; 81025; 82607; 82746; 83036; 84443; 85025; 87635; 99222; 99232; 99285

== ENCOUNTER 2020-10-23 17:57 | Emergency (ER) | payer MEDICARE, MEDICAID, SELFPAY ==
[2020-10-23 18:21] VITALS: BP 144/93; PULSE 109; RESP 18; TEMP 36.7; O2SAT 99; BMI 34.4
[2020-10-23 18:26] VITALS: BP 144/93; PULSE 97; RESP 18; TEMP 36.7; O2SAT 98
--- NOTE | 2020-10-23 18:42 | ED.PSYCH ---
HPI - Psych General Chief Complaint: Psychiatric Symptoms Stated Complaint: SI Time Seen by Provider: 10/23/20 18:42 Source: patient Mode of arrival: ambulatory Limitations: no limitations History of Present Illness HPI Narrative: Patient has history of depression PTSD just discharged from psych floor 2 days ago according to patient prescriber did not feel up all the medications except for anxiety patient feels suicidal which is chronic without any specific plan does not have much help here as she does not have her car MD complaint: suicidal ideation and feels depressed Onset (ago): day(s) Duration: constant History of same: Yes Relieving factors: none Exacerbating factors: none Associated psychiatric symptoms: none Associated symptoms: denies other symptoms If self harm: admits thoughts of self harm Related Data Home Medications Medication Instructions Recorded Confirmed clonazepam 1 tab PO BID PRN 10/10/20 10/10/20 gabapentin 1 cap PO TID 10/10/20 10/10/20 Previous Rx's Medication Instructions Recorded clonidine HCl 0.1 mg PO BEDTIME 15 Days #15 tab 10/21/20 trazodone 100 mg PO BEDTIME 15 Days #15 tab 10/21/20 venlafaxine 37.5 mg PO DAILY 15 Days #15 cap 10/21/20 venlafaxine 75 mg PO DAILY 15 Days #15 cap 10/21/20 clonazepam [Klonopin] 1 mg PO TID PRN #20 tab 10/23/20 Allergies Allergy/AdvReac Type Severity Reaction Status Date / Time No Known Allergies Allergy Unverified 06/04/20 17:17 Review of Systems Review of Systems: Constitutional : No Fever, No Chills ENT/Mouth : No Ear Pain, No Nasal Congestion, No sore throat Eyes: No Eye Pain, No Swelling, No Redness Cardiovascular : No Chest Pain, No SOB Respiratory : No Cough, No Sputum, No Dyspnea Gastrointestinal : No Nausea, No Vomiting, No Diarrhea, No Hematochezia, No Melena Genitourinary : No Dysuria, No Urinary Frequency, No Hematuria Musculoskeletal : No Myalgias Skin : No Skin Lesions, No rash Neuro : No Weakness, No Numbness, No Paresthesias, No Dizziness, No Headache Psych : positive Anxiety, positive Depression, positive SI Heme/Lymph: No Lymphadenopathy Endocrine : No Polyuria, No Polydipsia PMFSH Past Medical History Medical History Anxiety Depression PTSD (post-traumatic stress disorder) Suicide attempt Social History Social History Household Members: Other Housing: House Alcohol intake: former Smoking Status: Current every day smoker Tobacco Type: Cigarette and Smokeless Tobacco Packs Per Day: 0.5 Cigarettes Per Day: 0.5 Second Hand Smoke Exposure: No Advance Directives: No Advance Directives Information Provided: No service: No Sexual orientation: Straight/Heterosexual Physical Exam Vital Signs: Vital Signs: Last Vital Signs Temp 97.6 F 10/23/20 20:47 Pulse 74 10/23/20 20:47 Resp 16 10/23/20 20:47 BP 111/42 L 10/23/20 20:47 Pulse Ox 97 10/23/20 20:47 Body Mass Index 34.4 Appearance: Alert. Oriented X3. No acute distress. Anxious Eyes: Pupils equal, round and reactive to light. ENT: Pharynx normal. Neck: Normal inspection. Neck supple. CVS: Normal heart rate and rhythm. Pulses normal. Respiratory: No respiratory distress. Breath sounds normal. Abdomen: Soft and nontender. Bowel sounds are present, no mass palpable, no CVA tenderness Skin: Skin warm and dry. Normal skin color. Normal skin turgor. Extremities: No lower extremity edema. Neuro: Oriented X 3. No motor deficit. No sensory deficit. Psych: Appearance: grossly normal Mental Status: mental status grossly normal Speech and movement: Normal speech and movement present Affect: Anxious affect present Attitude: cooperative Thought process: Normal thought process present Thought content: Suicidality present Insight: Fair insight present (Psych) Judgement: Fair judgement present (Psych) Course Course Course Narrative: Patient seen by therapist advised to discharge her home on Klonopin which she used to take 1-3 tablets a day for a long time will discharge her home on Klonopin 1 mg every 8 hours as needed patient denies any suicidal ideation at this time Discharge Plan Discharge Clinical Impression: Depression Patient Disposition: Home, Self-Care Instructions: Depression (ED) Additional Instructions: Continue taking medications as prescribed by a psychiatrist and follow up with her Prescriptions: New clonazepam [Klonopin] 1 mg tablet 1 mg PO TID PRN (Reason: anxiety) Qty: 20 RF: 0 No Action clonazepam 1 mg tablet 1 tab PO BID PRN (Reason: anxiety) RF: 0 gabapentin 300 mg capsule 1 cap PO TID RF: 0 clonidine HCl 0.1 mg Tablet 0.1 mg PO BEDTIME 15 Days Qty: 15 RF: 0 trazodone 100 mg Tablet 100 mg PO BEDTIME 15 Days Qty: 15 RF: 0 venlafaxine 37.5 mg Capsule,Extended Release 24hr 37.5 mg PO DAILY 15 Days Qty: 15 RF: 0 venlafaxine 75 mg Capsule,Extended Release 24hr 75 mg PO DAILY 15 Days Qty: 15 RF: 0
[2020-10-23] MEDS: clonazePAM 1 MG TABLET 2 MG PO (19:09)
--- NOTE | 2020-10-23 20:14 | PC.NURSE ---
Waiting to be seen by CARE team. Sleeping at current, no signs of distress, respirations even and unlabored.
--- NOTE | 2020-10-23 20:27 | PC.NURSE ---
Pt meeting with CARE team at current.
[2020-10-23 20:47] VITALS: BP 111/42; PULSE 74; RESP 16; TEMP 36.4; O2SAT 97
--- NOTE | 2020-10-23 21:21 | MHC.CARE ---
CARE team met with pt for consult. Pt was discharged from two days ago. She endorsed vague SI with a precipitant of her Klonipan being stopped prior to discharge. Pt reports she has been experiencing panic attacks, disruption in sleep and tired I just want to end it . She expressed how difficult it has been without her Klonipan and is unsure why she was d/c from without her normal script. Pt discusses family and environmental stressors with T/W that appear to be distressing for her. She expressed that she meets with a new therapist next week and psychiatrist. Pt was able to contract for safety and agreeable to follow up with her psychiatrist following 1 week script of Klonipan provided by Dr. Beckett
== END 2020-10-23 21:54 | disposition home or self-care (01) ==
PROVIDERS: Emergency Provider Internal Medicine; PCP Internal Medicine Sports Medicine
DX: F33.1 Major depressive disorder, recurrent, moderate (principal); R45.851 Suicidal ideations; F17.210 Nicotine dependence, cigarettes, uncomplicated; Z71.6 Tobacco abuse counseling; Z79.899 Other long term (current) drug therapy
CPT/HCPCS: 99284; 99285

== ENCOUNTER 2020-10-31 08:03 | Inpatient (IN) | payer MEDICARE, MEDICAID, SELFPAY ==
[2020-10-31 08:54] VITALS: BP 125/82; PULSE 114; RESP 18; TEMP 36.4; O2SAT 97; BMI 34.3
[2020-10-31] MEDS: LORazepam 1 MG TABLET 2 MG PO (09:25)
[2020-10-31 09:48] LABS: COVID-19 Test Negative (Negative)
--- NOTE | 2020-10-31 10:07 | ED_ITS ---
HPI - Psych General Chief Complaint: Anxiety Stated Complaint: CRISIS Time Seen by Provider: 10/31/20 09:09 Source: patient Mode of arrival: ambulatory Limitations: no limitations History of Present Illness HPI Narrative: 39-year-old female with a past history of depression, anxiety, PTSD here with complaints of feeling depressed with suicidal thoughts times several days. The patient tells me that she was seen here recently and admitted to our psychiatric unit and was discharged on October 21. She tells me they changed her medications and on discharge she felt slightly improved but the next few days she started to feel worse. She tells me that she ran out of her Seroquel 2 days ago and was doing the Seroquel taper but she is unclear on the doses. She also did not get her refill of clonazepam. She tells me she is feeling anxious feeling like her body is jerking. She has a plan to overdose on her medications. She is also complaining of feeling anxiety. No hallucinations. No physical complaints other than what is mentioned. She feels like she needs to be inpatient again. MD complaint: suicidal ideation and feels depressed Related Data Home Medications Medication Instructions Recorded Confirmed clonazepam 1 tab PO BID PRN 10/10/20 10/10/20 gabapentin 1 cap PO TID 10/10/20 10/10/20 Previous Rx's Medication Instructions Recorded clonidine HCl 0.1 mg PO BEDTIME 15 Days #15 tab 10/21/20 trazodone 100 mg PO BEDTIME 15 Days #15 tab 10/21/20 venlafaxine 37.5 mg PO DAILY 15 Days #15 cap 10/21/20 venlafaxine 75 mg PO DAILY 15 Days #15 cap 10/21/20 clonazepam [Klonopin] 1 mg PO TID PRN #20 tab 10/23/20 Allergies Allergy/AdvReac Type Severity Reaction Status Date / Time No Known Allergies Allergy Unverified 06/04/20 17:17 Review of Systems Review of Systems: Yes all other systems are reviewed and are negative Constitutional: Constitutional: Reports no additional constitutional complaints, Denies body ache(s), Denies chills, Denies fever(s), Denies headache(s) and Denies weakness Eyes: Eyes: Reports no additional eye complaints and Denies change in vision ENT: Reports system reviewed and no additional complaints, except as documented, Denies dizziness, Denies headache(s), Denies nasal congestion, Denies nasal discharge and Denies neck pain Cardiovascular: Cardiovascular: Reports no additional cardiovascular complaints, Denies chest pain, Denies leg edema and Denies dyspnea Respiratory: Respiratory: Reports no additional respiratory complaints, Denies cough and Denies dyspnea Gastrointestinal: Gastrointestinal: Reports no additional gastrointestinal complaints, Denies abdominal pain, Denies diarrhea, Denies nausea and Denies vomiting Genitourinary: Genitourinary: Reports no additional female genitourinary complaints and Denies urinary incontinence Musculoskeletal: Musculoskeletal: Reports no additional musculoskeletal complaints, Denies back pain, Denies arthralgias, Denies joint swelling, Denies neck pain, Denies numbness and Denies tingling Integumentary/Breasts: Skin/Breast: Reports system reviewed and no additional complaints, except as docu and Denies rash Neurologic: Reports system reviewed and no additional complaints, except as documented, Denies Abnormal speech present, Denies dizziness, Denies headache(s ), Denies numbness, Denies tingling and Denies weakness Psychiatric: Psychiatric: Reports anxiety, Reports depression, Denies visual hallucinations, Denies hallucinations, Denies homicidal ideation and Reports suicidal ideation [facility] Past Medical History Attestation statement: The following information was validated with the patient. Source: old records reviewed and nursing notes reviewed Medical History Anxiety Depression PTSD (post-traumatic stress disorder) Suicide attempt Social History Social History Household Members: Other Housing: House Alcohol intake: former Smoking Status: Current every day smoker Tobacco Type: Cigarette and Smokeless Tobacco Packs Per Day: 0.5 Cigarettes Per Day: 0.5 Second Hand Smoke Exposure: No Use of substances other than those prescribed or required for medical reasons: No Advance Directives: No Advance Directives Information Provided: No service: No Sexual orientation: Straight/Heterosexual Physical Exam Vital Signs: Vital Signs: Last Vital Signs Temp 97.6 F 10/31/20 08:54 Pulse 114 H 10/31/20 08:54 Resp 20 10/31/20 14:00 BP 125/82 10/31/20 08:54 Pulse Ox 97 10/31/20 08:54 Body Mass Index 34.3 Const: General: cooperative, healthy appearing, comfortable and no acute distress Orientation/consciousness: patient oriented x3 Limitations: no limitations HENMT: Head: Yes normal to inspection Ears: hearing grossly normal bilaterally General nose exam: Normal external nose present Face and si nus: Yes normal facial exam Mouth: Normal oral and palatal mucosa present Throat: Yes posterior oropharynx normal Eyes: General: appearance normal, both eyes and all related structures Pupils: Equal, round and reactive pupils present Neck: Neck: Yes normal visual inspection Chest: Chest palpation & inspection: normal inspection of the chest Resp: Effort & Inspection: normal respiratory effort Auscultation: clear to auscultation bilaterally Cardio: Rate: regular rate Rhythm: regular rhythm Peripheral pulses: Peripheral pulses 2+ throughout GI: Inspection: Yes normal to inspection Palpation (GI): Soft to palpation and nontender Auscultation: normal bowel sounds Back/Spine/Pelvis: Thoracic/Lumbar Spine: thoracic and lumbar spine normal to inspection Skin: General skin exam: no rashes or lesions noted Neuro: General: patient oriented x3, no focal motor deficits and normal sensation to monofilament Cranial nerves: Yes Equal, round and reactive pupils present Cognition (Neuro): normal cognition Speech: No Abnormal speech present Gait exam (Neuro): Normal gait present Motor exam (neuro): 5/5 motor strength present throughout Extrem: General: Yes normal to inspection Psych: Appearance: grossly normal Mental Status: mental status grossly normal Speech and movement: Normal speech and movement present Affect: Sad affect present and Anxious affect present Attitude: cooperative Thought process: Normal thought process present Course Course Course Narrative: 39-year-old female here with suicidal thoughts with a plan to overdose on her home medications, feeling anxious and depressed and feeling like she needs to be inpatient again. Recent inpatient admission with discharge 10 days ago. She does this he changed her medications and feels like this may be contributing to her symptoms. No physical complaints. Will check drug screen, COVID screen and order BHN evaluation. 1400-Pt seen by crisis and plan for section 12, bed search. 1800-Sign out to Radha KIM pending above. MDM - Psych Lab Data Labs: Lab Results 10/31/20 10/31/20 10/31/20 Range/Units 09:27 10:30 10:30 Urine Test NEGATIVE (NEGATIVE) Urine Opiates Screen Not Detected (Not Detect) Ur Barbiturates Screen Not Detected (Not Detect) Ur Phencyclidine Scrn POSITIVE H (Not Detect) Ur Amphetamines Screen Not Detected (Not Detect) U Benzodiazepines Scrn Not Detected (Not Detect) Urine Cocaine Screen Not Detected (Not Detect) U Marijuana (THC) Screen Not Detected (Not Detect) COVID-19 ([facility]YUSH) Negative (Negative) COVID-19 Clin Com See Note Discharge Plan Discharge Clinical Impression: Post traumatic stress disorder, MDD (major depressive disorder), recurrent episode, moderate Prescriptions: No Action clonazepam [Klonopin] 1 mg tablet 1 mg PO TID PRN (Reason: anxiety) Qty: 20 RF: 0 clonazepam 1 mg tablet 1 tab PO BID PRN (Reason: anxiety) RF: 0 gabapentin 300 mg capsule 1 cap PO TID RF: 0 clonidine HCl 0.1 mg Tablet 0.1 mg PO BEDTIME 15 Days Qty: 15 RF: 0 trazodone 100 mg Tablet 100 mg PO BEDTIME 15 Days Qty: 15 RF: 0 venlafaxine 37.5 mg Capsule,Extended Release 24hr 37.5 mg PO DAILY 15 Days Qty: 15 RF: 0 venlafaxine 75 mg Capsule,Extended Release 24hr 75 mg PO DAILY 15 Days Qty: 15 RF: 0
[2020-10-31 10:53] LABS: UPreg QC Valid YES; Urine Pregnancy NEGATIVE (NEGATIVE)
[2020-10-31 11:19] LABS: Amphetamine Screen Urine Not Detected (Not Detect); Barbiturates, Urine Not Detected (Not Detect); Benzodiazepines Screen Urine Not Detected (Not Detect); Cannabinoid Screen Urine Not Detected (Not Detect); Cocaine Screen Urine Not Detected (Not Detect); Opiate Screen Urine Not Detected (Not Detect); Phencyclidine Screen Urine POSITIVE (Not Detect)
--- NOTE | 2020-10-31 12:21 | PC.NURSE ---
Report received from NILS Oakley-AYLIN in to see as she arrived to pod. AYLIN in to see at this time.
--- NOTE | 2020-10-31 13:24 | PC.NURSE ---
resting quietly in bed. skin pwd. awake.
[2020-10-31 14:00] VITALS: RESP 20
--- NOTE | 2020-10-31 14:33 | PC.NURSE ---
Pt awake, states she is feeling restless. Pt unable to state why utox is positive for pcp, denies any substance use. Pt aware that she is waiting for inpatient bed, and is familiar w/ crisis process.
[2020-10-31 16:00] VITALS: RESP 20
--- NOTE | 2020-10-31 17:24 | PC.NURSE ---
Pt resting, resp unlabored.
[2020-10-31 18:17] VITALS: BP 115/74; PULSE 86; RESP 16; TEMP 36.7; O2SAT 98
[2020-10-31 20:10] VITALS: BP 116/69; PULSE 62
[2020-10-31] MEDS: cloNIDine HCL 0.1 MG TABLET PO (20:10)
[2020-10-31] MEDS: Gabapentin 300 MG CAPSULE PO (20:10)
[2020-10-31] MEDS: traZODone HCL 100 MG TABLET PO (20:13)
[2020-10-31 20:15] VITALS: BP 116/69; PULSE 62; RESP 18; TEMP 36.9; O2SAT 98
[2020-11-01] VITALS (7 sets, daily range): BP systolic 95–124; BP diastolic 38–80; PULSE 64–96; RESP 16–20; TEMP 36.4–36.7; O2SAT 96–98
--- NOTE | 2020-11-01 08:01 | PC.NURSE ---
Report received from NILS Rose. Pt awake, asking re: Methadone. Pt assured that [facility] was called and now RN is awaiting call back re: methadone dosage in order to verify.
[2020-11-01] MEDS: Gabapentin 300 MG CAPSULE PO ×3 (08:28→20:04)
[2020-11-01] MEDS: clonazePAM 1 MG TABLET PO ×2 (08:31→20:50)
--- NOTE | 2020-11-01 08:56 | PC.NURSE ---
Called C re: Methadone dosage- spoke w/ Vidhya, who stated that she would page out the message again. Awaiting return call.
[2020-11-01] MEDS: Venlafaxine HCl ER 37.5 MG CAP.ER.24H PO (09:23)
[2020-11-01] MEDS: Venlafaxine HCl ER 75 MG CAP.ER.24H PO (09:23)
--- NOTE | 2020-11-01 10:38 | PC.NURSE ---
Pharmacy called again re: methadone. Pt currently resting, resp unlabored.
--- NOTE | 2020-11-01 11:09 | PC.NURSE ---
Pt received her methadone, no concerns reported.
[2020-11-01 12:06] LABS: MANUAL DIFF FLAG NO
[2020-11-01 12:08] LABS: Basophils Percent Auto 0.5 % (0-2); Eosinophils Percent Auto 1.1 % (0-4); Hematocrit 40.7 % (37-47); Hemoglobin 13.9 g/dl (12.0-16.0); Imm Gran Abs Auto 0.01 X10*3/uL (0.00-0.03); Imm Gran Pct Auto 0.3 % (0.0-0.4); Lymphocytes Absolute Auto 1.9 X10*3/uL (1.2-4.9); Lymphocytes Percent Auto 51.1 % (20-40); Mean Corpuscular HGB Conc 34.2 g/dl (31.0-35.0); Mean Corpuscular Hemoglobin 28.7 pg (27.0-33.0); Mean Corpuscular Volume 83.9 fL (80-98); Mean Platelet Volume 10.5 fL (9.4-12.3); Monocytes Absolute Auto 0.2 X10*3/uL (0.1-1.2); Monocytes Percent Auto 5.8 % (2-11); Neutrophils Absolute Auto 1.6 X10*3/uL (2.0-8.3); Neutrophils Percent Auto 41.2 % (45-73); Platelet Count 163 X10*3/uL (160-400); Red Blood Count 4.85 X10*6/uL (4.20-5.50); Red Cell Distribution Width 12.7 % (11.0-16.0); White Blood Count 3.8 X10*3/uL (4.8-10.8)
[2020-11-01 12:32] LABS: Ethanol < 10 mg/dL
[2020-11-01 12:36] LABS: Alanine Aminotransferase 16 U/L (0-31); Albumin Level 3.7 g/dL (3.5-5.0); Alkaline Phosphatase 81 U/L (39-117); Anion Gap 11 (12-20); Aspartate Amino Transferase 23 U/L (5-31); Bilirubin Direct < 0.2 mg/dL (0.0-0.5); Bilirubin Total 0.6 mg/dL (0.0-1.0); Blood Urea Nitrogen 11 mg/dL (9-16); Calcium 8.8 mg/dL (8.4-10.2); Carbon Dioxide 28 mmol/L (22-29); Chloride 102 mmol/L (96-108); Creatinine Clr Calc Pharmacy 101.4; Estimated Glomerular Filt Rate > 60; Glucose Random 103 mg/dL (60-115); Magnesium 1.8 mg/dL (1.6-2.6); Potassium 4.3 mmol/L (3.3-5.1); Sodium 137 mmol/L (135-145); Total Protein 6.6 g/dL (6.5-8.0)
--- NOTE | 2020-11-01 13:53 | PC.NURSE ---
Pt reporting that she needs to use her own telephone to contact unemployment- pt currently being assisted w/ this by FLOR
--- NOTE | 2020-11-01 15:24 | PC.NURSE ---
Report received from NILS Nunez. Pt sleeping at current. Respirations even and unlabored. Continues to be a section 12 bed search.
--- NOTE | 2020-11-01 17:31 | PC.NURSE ---
Pt asleep at current. No signs of distress. Respirations even and unlabored.
[2020-11-01] MEDS: traZODone HCL 100 MG TABLET PO (20:08)
--- NOTE | 2020-11-01 20:30 | PC.NURSE ---
Patient compliant with HS PO medication, Clonidine held for BP parameter, denied distress, will continue to monitor.
[2020-11-02 06:00] VITALS: BP 144/62; PULSE 72; RESP 18; TEMP 36.9; O2SAT 98
--- NOTE | 2020-11-02 06:57 | PC.NURSE ---
Report received. PT currently resting, calm and cooperative. Pt is inpatient bedsearch.
[2020-11-02 09:04] VITALS: BP 117/75; PULSE 65; RESP 18; TEMP 36.3; O2SAT 96
[2020-11-02] MEDS: Gabapentin 300 MG CAPSULE PO ×3 (09:17→21:33)
[2020-11-02] MEDS: Venlafaxine HCl ER 75 MG CAP.ER.24H PO (09:17)
[2020-11-02] MEDS: Venlafaxine HCl ER 37.5 MG CAP.ER.24H PO (09:17)
[2020-11-02] MEDS: clonazePAM 1 MG TABLET PO (10:45)
[2020-11-02] MEDS: QUEtiapine Fumarate 25 MG TABLET PO (14:46)
[2020-11-02] MEDS: LORazepam 1 MG TABLET 2 MG PO (15:22)
[2020-11-02 16:25] VITALS: BP 127/77; PULSE 68; RESP 16; TEMP 36.3; O2SAT 97
--- NOTE | 2020-11-02 19:10 | PC.NURSE ---
Report received. PT is sleeping in her bed. Respirations even and unlabored. PT is inpatient bed search.
[2020-11-02 21:33] VITALS: BP 125/77; PULSE 62
[2020-11-02] MEDS: QUEtiapine Fumarate 400 MG TABLET PO (21:33)
[2020-11-02] MEDS: cloNIDine HCL 0.1 MG TABLET PO (21:33)
[2020-11-02] MEDS: traZODone HCL 100 MG TABLET PO (21:33)
[2020-11-02 21:40] VITALS: BP 125/77; PULSE 60; RESP 20; TEMP 36.6; O2SAT 98
[2020-11-03 06:00] VITALS: RESP 16; TEMP 36.6
--- NOTE | 2020-11-03 07:00 | PC.NURSE ---
Report recieved. PT currently sleeping, respiraitons even and unlabored, in no apparent distress. PT is inpatient bedsearch.
--- NOTE | 2020-11-03 09:06 | PC.NURSE ---
PT blood pressure 89/59 sitting, pt eating breakfast and drinking fluids at this time. Provider aware, will reassess vital signs after pt eats.
[2020-11-03 09:08] VITALS: BP 89/59; PULSE 55; RESP 16; TEMP 36.5; O2SAT 98
[2020-11-03 09:30] VITALS: BP 102/76
[2020-11-03] MEDS: Venlafaxine HCl ER 75 MG CAP.ER.24H PO (10:03)
[2020-11-03] MEDS: Gabapentin 300 MG CAPSULE PO ×3 (10:03→20:25)
[2020-11-03] MEDS: Venlafaxine HCl ER 37.5 MG CAP.ER.24H PO (10:03)
[2020-11-03 17:55] VITALS: BP 91/60; PULSE 84; RESP 17; TEMP 37.2; O2SAT 96
[2020-11-03] MEDS: clonazePAM 1 MG TABLET PO (18:11)
[2020-11-03 20:08] VITALS: BP 132/88; PULSE 96
[2020-11-03 20:25] VITALS: BP 132/88; PULSE 96
[2020-11-03] MEDS: QUEtiapine Fumarate 400 MG TABLET PO (20:25)
[2020-11-03] MEDS: cloNIDine HCL 0.1 MG TABLET PO (20:25)
[2020-11-03] MEDS: traZODone HCL 100 MG TABLET PO (20:25)
[2020-11-03] MEDS: LORazepam 1 MG TABLET 2 MG PO (20:49)
[2020-11-03] MEDS: QUEtiapine Fumarate 25 MG TABLET PO (20:49)
--- NOTE | 2020-11-03 21:46 | PC.NURSE ---
Patient currently in her room resting quietly, compliant with HS PO medication, showered, good behavioral control, denied SI/HI/AVH, got little upset over belongings, laundered her soiled laundry, denied distress, will continue to monitor the patient.
[2020-11-04 06:00] VITALS: BP 146/66; PULSE 54; RESP 16; TEMP 36.8; O2SAT 97
--- NOTE | 2020-11-04 07:14 | PC.NURSE ---
Report received from NILS Rose. Pt asleep at current. No signs of distress. Respirations even and unlabored.
[2020-11-04] MEDS: Venlafaxine HCl ER 75 MG CAP.ER.24H PO (10:04)
[2020-11-04] MEDS: Gabapentin 300 MG CAPSULE PO ×3 (10:04→20:36)
[2020-11-04] MEDS: Venlafaxine HCl ER 37.5 MG CAP.ER.24H PO (10:05)
--- NOTE | 2020-11-04 12:58 | PC.NURSE ---
Nurse to nurse given to NILS Pozo on M5.
[2020-11-04] MEDS: clonazePAM 1 MG TABLET PO ×2 (13:42→21:03)
[2020-11-04 16:10] VITALS: BP 103/67; PULSE 89; RESP 16; TEMP 35.5; O2SAT 96
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
[2020-11-04 18:00] VITALS: BP 118/58; PULSE 62; TEMP 36.1
[2020-11-04] MEDS: QUEtiapine Fumarate 400 MG TABLET PO (20:36)
[2020-11-04] MEDS: traZODone HCL 100 MG TABLET PO (20:36)
[2020-11-04 20:37] VITALS: BP 102/60; PULSE 76
[2020-11-04] MEDS: cloNIDine HCL 0.1 MG TABLET PO (20:37)
[2020-11-05 06:30] VITALS: BP 118/60; PULSE 56; RESP 16; TEMP 36.8; O2SAT 99
[2020-11-05] MEDS: Gabapentin 300 MG CAPSULE PO ×3 (09:36→20:39)
[2020-11-05] MEDS: Venlafaxine HCl ER 37.5 MG CAP.ER.24H PO (09:36)
[2020-11-05] MEDS: Venlafaxine HCl ER 75 MG CAP.ER.24H PO (09:36)
[2020-11-05] MEDS: clonazePAM 1 MG TABLET PO (09:50)
[2020-11-05 12:27] LABS: COVID-19 Test Negative (Negative)
[2020-11-05 17:04] VITALS: BP 122/71; PULSE 79; TEMP 36.3
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
[2020-11-05] MEDS: QUEtiapine Fumarate 400 MG TABLET PO (20:39)
[2020-11-05] MEDS: traZODone HCL 100 MG TABLET PO (20:39)
[2020-11-05 20:46] VITALS: BP 105/55; PULSE 79
[2020-11-05 21:04] VITALS: BP 116/84; PULSE 102
[2020-11-05] MEDS: cloNIDine HCL 0.1 MG TABLET PO (21:04)
--- NOTE | 2020-11-06 05:38 | P.PNPSI_ITS ---
Subjective Subjective Date of Service: 11/07/20 Reason For Visit: Depression Subjective Notes: Tang Warning and Conditional Voluntary Interim History: Pt reports she is depressed but denies suicidal ideation. She reports sleeping eating well. She has been intrusive with pt and when asked to follow unit rules, pt easily becomes irritable. She denies SI/HI. She continues to ask for increase in dose of clonazepam as only medication that works for her, which she was informed will not be the case. Medication Compliance: Yes Side effects from medications: No Review of Systems Review of Systems Yes all other systems are reviewed and are negative Constitutional: Reports no additional constitutional complaints, Denies body ache(s), Denies chills, Denies fever(s), Denies headache(s) and Denies weakness Eyes: Reports no additional eye complaints and Denies change in vision Reports system reviewed and no additional complaints, except as documented, Den ies dizziness, Denies headache(s), Denies nasal congestion, Denies nasal discharge and Denies neck pain Cardiovascular: Reports no additional cardiovascular complaints, Denies chest pain, Denies leg edema and Denies dyspnea Respiratory: Reports no additional respiratory complaints, Denies cough and Denies dyspnea Gastrointestinal: Reports no additional gastrointestinal complaints, Denies abdominal pain, Denies diarrhea, Denies nausea and Denies vomiting Musculoskeletal: Reports no additional musculoskeletal complaints, Denies back pain, Denies arthralgias, Denies joint swelling, Denies neck pain, Denies numbness and Denies tingling Skin/Breast: Reports system reviewed and no additional complaints, except as docu and Denies rash Reports system reviewed and no additional complaints, except as documented, Denies Abnormal speech present, Denies dizziness, Denies headache(s), Denies numbness, Denies tingling and Denies weakness Psychiatric: Reports anxiety, Reports depression, Denies visual hallucinations, Denies hallucinations, Denies homicidal ideation and Reports suicidal ideation Mental Status Exam Mental Status Exam Narrative: Appearance: wearing hospital gown, disheveled, in NAD Behavior: cooperative Psychomotor: no agitation or retardation noted Speech: clear, normal rate/rhythm/volume, spontaneous TP: linear TC: no signs of psychosis, future oriented Mood: anxious Affect: bright, non labile, irritable at times AH/VH: none Delusions: none Insight/judgment: fair x 2. Memory/cog: alert, oriented x 4. Grossly intact to conversational testing. Diagnostics Vital Signs (24Hr): Vital Signs - 24 hr 11/06/20 06:05 11/06/20 15:50 11/06/20 20:49 Temperature 96.9 F 98.4 F Pulse Rate 60 64 58 Respiratory Rate 16 Blood Pressure 102/60 118/64 100/57 L Pulse Oximetry 98 Body Mass Index 34.3 Labs Results: 11/01/20 12:01 11/01/20 12:01 Labs: Laboratory Results - last 48 hr 11/05/20 11:55 COVID-19 ([facility]) Negative COVID-19 Clin Com See Note Medications Medications Current Medications Generic Name Dose Route Start Last Admin Trade Name Freq PRN Reason Stop Dose Admin Acetaminophen 650 mg 11/04/20 14:00 Acetaminophen 325 Mg Tablet PO Q6H PRN Headache/Pain Mild Scale (1-3) Al Hydroxide/Mg Hydroxide 30 ml 11/04/20 14:00 Magnesium Hydrox/Alum Hydrox 30 Ml Oral.Susp PO Q6H PRN Heartburn/Nausea Clonazepam 1 mg 11/06/20 21:00 11/06/20 20:51 Clonazepam 1 Mg Tablet PO 1 mg BID KIMO Administration Clonidine HCl 0.1 mg 10/31/20 21:00 11/06/20 20:49 Clonidine Hcl 0.1 Mg Tablet PO 0.1 mg BEDTIME KIMO Administration Protocol Gabapentin 300 mg 10/31/20 21:00 11/06/20 20:51 Gabapentin 300 Mg Capsule PO 300 mg TID KIMO Administration Hydroxyzine HCl 50 mg 11/04/20 14:00 11/06/20 18:06 Hydroxyzine Hcl 25 Mg Tablet PO 50 mg Q6H PRN Administration Anxiety Magnesium Hydroxide 30 ml 11/04/20 14:00 Milk Of Magnesia 30 Ml Oral.Susp PO DAILY PRN Constipation Methadone HCl 80 mg 11/01/20 09:45 11/06/20 09:33 Methadone Hcl 1 Mg/0.1 Ml Oral.Conc PO 80 mg DAILY KIMO Administration Nicotine 21 mg 11/05/20 09:00 11/06/20 15:49 Nicotine 21 Mg Patch.Td24 TRANSDERMA Not Given DAILY KIMO Nicotine Polacrilex 2 mg 11/04/20 17:12 Nicotine Polacrilex 2 Mg Gum BUCCAL Q2H PRN Nicotine Cravings Quetiapine Fumarate 25 mg 11/02/20 13:44 11/03/20 20:49 Quetiapine Fumarate 25 Mg Tablet PO 25 mg BID PRN Administration Anxiety Quetiapine Fumarate 400 mg 11/02/20 21:00 11/06/20 20:51 Quetiapine Fumarate 400 Mg Tablet PO 400 mg BEDTIME KIMO Administration Trazodone HCl 100 mg 10/31/20 21:00 11/06/20 20:49 Trazodone Hcl 100 Mg Tablet PO 100 mg BEDTIME KIMO Administration Trazodone HCl 50 mg 11/04/20 14:00 Trazodone Hcl 50 Mg Tablet PO BEDTIME PRN Insomnia Venlafaxine HCl 37.5 mg 11/01/20 09:00 11/06/20 09:33 Venlafaxine Hcl Er 37.5 Mg Cap.Er.24h PO 37.5 mg DAILY KIMO Administration Venlafaxine HCl 75 mg 11/01/20 09:00 11/06/20 09:33 Venlafaxine Hcl Er 75 Mg Cap.Er.24h PO 75 mg DAILY KIMO Administration Allergies Allergies Allergy/AdvReac Type Severity Reaction Status Date / Time No Known Allergies Allergy Unverified 06/04/20 17:17 Assessment & Plan Assessment & Plan (1) MDD (major depressive disorder), recurrent episode, moderate: Status: Acute Code(s): F33.1 - Major depressive disorder, recurrent, moderate Assessment and Plan: 1. Continue Effexor 112.5mg po daily 2. Continue Gabapentin 3. Continue clonazepam 3. aftercare planning (2) Opioid dependence on agonist therapy: Status: Acute Code(s): F11.20 - Opioid dependence, uncomplicated Greater than 50% of the session was spent on counseling and/or coordination of care Reason for contiued inpatient stay Substantial Risk for: harm to self
[2020-11-06 06:05] VITALS: BP 102/60; PULSE 60; RESP 16; TEMP 36.1; O2SAT 98
--- NOTE | 2020-11-06 09:00 | PM.PSYDC ---
DS: Providers Provider Date of Service: 11/06/20 Date of admission: 11/04/20 14:00 Primary care physician: Christiano Wang MD DS: Medications Discharge Medications Home Medications: Home Medications Medication Instructions Recorded Confirmed clonazepam 1 tab PO BID PRN 10/10/20 10/31/20 gabapentin 1 cap PO TID 10/10/20 10/31/20 methadone 80 mg PO DAILY 11/01/20 11/01/20 quetiapine 1 tab PO BEDTIME 11/02/20 11/02/20 quetiapine 1 tab PO BID PRN 11/02/20 11/02/20 Previous Rx's Medication Instructions Recorded clonidine HCl 0.1 mg PO BEDTIME 15 Days #15 tab 10/21/20 trazodone 100 mg PO BEDTIME 15 Days #15 tab 10/21/20 venlafaxine 37.5 mg PO DAILY 15 Days #15 cap 10/21/20 venlafaxine 75 mg PO DAILY 15 Days #15 cap 10/21/20 Discharge Plan Discharge Discharge Medications: No Action clonazepam 1 mg tablet 1 tab PO BID PRN (Reason: anxiety) RF: 0 gabapentin 300 mg capsule 1 cap PO TID RF: 0 clonidine HCl 0.1 mg Tablet 0.1 mg PO BEDTIME 15 Days Qty: 15 RF: 0 trazodone 100 mg Tablet 100 mg PO BEDTIME 15 Days Qty: 15 RF: 0 venlafaxine 37.5 mg Capsule,Extended Release 24hr 37.5 mg PO DAILY 15 Days Qty: 15 RF: 0 venlafaxine 75 mg Capsule,Extended Release 24hr 75 mg PO DAILY 15 Days Qty: 15 RF: 0 methadone 10 mg/mL Concentrate 80 mg PO DAILY RF: 0 quetiapine 400 mg tablet 1 tab PO BEDTIME RF: 0 quetiapine 25 mg tablet 1 tab PO BID PRN (Reason: Anxiety) RF: 0 Data Data Completed and Pending Completed studies during hospitalization [Text1]: 10/31/20 10/31/20 10/31/20 09:27 10:30 10:30 WBC RBC Hgb Hct MCV MCH MCHC RDW Plt Count MPV Immature Gran % (Auto) Neut % (Auto) Lymph % (Auto) Gibson % (Auto) Eos % (Auto) Baso % (Auto) Lymph # (Auto) Gibson # (Auto) Eos # (Auto) Baso # (Auto) Abs Immat Gran (auto) Absolute Neuts (auto) Absolute Nucleated RBC Nucleated RBC % (auto) Sodium Potassium Chloride Carbon Dioxide Anion Gap BUN Creatinine Estim Creat Clear Calc Estimated GFR Random Glucose Calcium Magnesium Total Bilirubin Direct Bilirubin AST ALT Alkaline Phosphatase Total Protein Albumin Urine Test NEGATIVE Urine Opiates Screen Not Detected Ur Barbiturates Screen Not Detected Ur Phencyclidine Scrn POSITIVE H Ur Amphetamines Screen Not Detected U Benzodiazepines Scrn Not Detected Urine Cocaine Screen Not Detected U Marijuana (THC) Screen Not Detected Ethyl Alcohol COVID-19 ([facility]) Negative COVID-19 Clin Com See Note 11/01/20 11/01/20 11/01/20 12:00 12:01 12:01 WBC 3.8 L RBC 4.85 Hgb 13.9 Hct 40.7 MCV 83.9 MCH 28.7 MCHC 34.2 RDW 12.7 Plt Count 163 MPV 10.5 Immature Gran % (Auto) 0.3 Neut % (Auto) 41.2 L Lymph % (Auto) 51.1 H Gibson % (Auto) 5.8 Eos % (Auto) 1.1 Baso % (Auto) 0.5 Lymph # (Auto) 1.9 Gibson # (Auto) 0.2 Eos # (Auto) 0.0 Baso # (Auto) 0.0 Abs Immat Gran (auto) 0.01 Absolute Neuts (auto) 1.6 L Absolute Nucleated RBC 0.000 Nucleated RBC % (auto) 0.0 Sodium 137 Potassium 4.3 Chloride 102 Carbon Dioxide 28 Anion Gap 11 L BUN 11 Creatinine 0.82 Estim Creat Clear Calc 101.4 Estimated GFR > 60 Random Glucose 103 Calcium 8.8 Magnesium 1.8 Total Bilirubin 0.6 Direct Bilirubin < 0.2 AST 23 ALT 16 Alkaline Phosphatase 81 Total Protein 6.6 Albumin 3.7 Urine Test Urine Opiates Screen Ur Barbiturates Screen Ur Phencyclidine Scrn Ur Amphetamines Screen U Benzodiazepines Scrn Urine Cocaine Screen U Marijuana (THC) Screen Ethyl Alcohol < 10 COVID-19 ([facility]) COVID-19 Clin Com 11/05/20 11:55 WBC RBC Hgb Hct MCV MCH MCHC RDW Plt Count MPV Immature Gran % (Auto) Neut % (Auto) Lymph % (Auto) Gibson % (Auto) Eos % (Auto) Baso % (Auto) Lymph # (Auto) Gibson # (Auto) Eos # (Auto) Baso # (Auto) Abs Immat Gran (auto) Absolute Neuts (auto) Absolute Nucleated RBC Nucleated RBC % (auto) Sodium Potassium Chloride Carbon Dioxide Anion Gap BUN Creatinine Estim Creat Clear Calc Estimated GFR Random Glucose Calcium Magnesium Total Bilirubin Direct Bilirubin AST ALT Alkaline Phosphatase Total Protein Albumin Urine Test Urine Opiates Screen Ur Barbiturates Screen Ur Phencyclidine Scrn Ur Amphetamines Screen U Benzodiazepines Scrn Urine Cocaine Screen U Marijuana (THC) Screen Ethyl Alcohol COVID-19 ([facility]) Negative COVID-19 Clin Com See Note DS: Summary Time Spent with Patient Time attestation: Total time spent providing and/or coordinating discharge services:
[2020-11-06] MEDS: Venlafaxine HCl ER 37.5 MG CAP.ER.24H PO (09:33)
[2020-11-06] MEDS: Gabapentin 300 MG CAPSULE PO ×3 (09:33→20:51)
[2020-11-06] MEDS: Venlafaxine HCl ER 75 MG CAP.ER.24H PO (09:33)
[2020-11-06 15:50] VITALS: BP 118/64; PULSE 64; TEMP 36.9
[2020-11-06] MEDS: hydrOXYzine HCL 25 MG TABLET 50 MG PO (18:06)
[2020-11-06 20:49] VITALS: BP 100/57; PULSE 58
[2020-11-06] MEDS: traZODone HCL 100 MG TABLET PO (20:49)
[2020-11-06] MEDS: cloNIDine HCL 0.1 MG TABLET PO (20:49)
[2020-11-06] MEDS: QUEtiapine Fumarate 400 MG TABLET PO (20:51)
[2020-11-06] MEDS: clonazePAM 1 MG TABLET PO (20:51)
[2020-11-07 06:10] VITALS: BP 88/52; PULSE 61; RESP 18; TEMP 36.2; O2SAT 97
[2020-11-07] MEDS: Venlafaxine HCl ER 37.5 MG CAP.ER.24H PO (10:26)
[2020-11-07] MEDS: Gabapentin 300 MG CAPSULE PO ×3 (10:26→19:53)
[2020-11-07] MEDS: Venlafaxine HCl ER 75 MG CAP.ER.24H PO (10:26)
[2020-11-07] MEDS: clonazePAM 1 MG TABLET PO ×2 (10:26→19:53)
--- NOTE | 2020-11-07 14:34 | P.PNPSI_ITS ---
Subjective Subjective Date of Service: 11/08/20 Reason For Visit: Depression Subjective Notes: Conditional Voluntary Interim History: Pt reports she is depressed but denies suicidal ideation. She reports sleeping eating well. She becomes irritable easily. She remains quite withdrawn and in bed for most of the day She denies SI/HI. She had no immediate concerns CBC w diff WNL Review of Systems Review of Systems Yes all other systems are reviewed and are negative Constitutional: Reports no additional constitutional complaints, Denies body ache(s), Denies chills, Denies fever(s), Denies headache(s) and Denies weakness Eyes: Reports no additional eye complaints and Denies change in vision Reports system reviewed and no additional complaints, except as documented, Denies dizziness, Denies headache(s), Denies nasal congestion, Denies nasal discharge and Denies neck pain Cardiovascular: Reports no additional cardiovascular complaints, Denies chest pain, Denies leg edema and Denies dyspnea Respiratory: Reports no additional respiratory complaints, Denies cough and Denies dyspnea Gastrointestinal: Reports no additional gastrointestinal complaints, Denies abdominal pain, Denies diarrhea, Denies nausea and Denies vomiting Musculoskeletal: Reports no additional musculoskeletal complaints, Denies back pain, Denies arthralgias, Denies joint swelling, Denies neck pain, Denies numbness and Denies tingling Skin/Breast: Reports system reviewed and no additional complaints, except as do cu and Denies rash Reports system reviewed and no additional complaints, except as documented, Denies Abnormal speech present, Denies dizziness, Denies headache(s), Denies numbness, Denies tingling and Denies weakness Psychiatric: Reports anxiety, Reports depression, Denies visual hallucinations, Denies hallucinations, Denies homicidal ideation and Reports suicidal ideation Mental Status Exam Mental Status Exam Patient Appearance: Fatigued and Disheveled Level of Consciousness: Appropriate Patient Behavior: Appropriate Mood Description: Apathetic Affect Description: Apathetic Ability to Follow Directions: Fair Speech Pattern: Soft-Spoken Thought Content: negative for Suicidal Ideation and negative for Homicidal Ideation Judgement: Fair Diagnostics Vital Signs (24Hr): Vital Signs - 24 hr 11/06/20 15:50 11/06/20 20:49 11/07/20 06:10 Temperature 98.4 F 97.1 F Pulse Rate 64 58 61 Respiratory Rate 18 Blood Pressure 118/64 100/57 L 88/52 L Pulse Oximetry 97 Body Mass Index 34.3 Labs Results: 11/08/20 08:33 11/01/20 12:01 Medications Medications Current Medications Generic Name Dose Route Start Last Admin Trade Name Reece PRN Reason Stop Dose Admin Acetaminophen 650 mg 11/04/20 14:00 Acetaminophen 325 Mg Tablet PO Q6H PRN Headache/Pain Mild Scale (1-3) Al Hydroxide/Mg Hydroxide 30 ml 11/04/20 14:00 Magnesium Hydrox/Alum Hydrox 30 Ml Oral.Susp PO Q6H PRN Heartburn/Nausea Clonazepam 1 mg 11/06/20 21:00 11/07/20 10:26 Clonazepam 1 Mg Tablet PO 1 mg BID KIMO Administration Clonidine HCl 0.1 mg 10/31/20 21:00 11/06/20 20:49 Clonidine Hcl 0.1 Mg Tablet PO 0.1 mg BEDTIME KIMO Administration Protocol Gabapentin 300 mg 10/31/20 21:00 11/07/20 10:26 Gabapentin 300 Mg Capsule PO 300 mg TID KIMO Administration Hydroxyzine HCl 50 mg 11/04/20 14:00 11/06/20 18:06 Hydroxyzine Hcl 25 Mg Tablet PO 50 mg Q6H PRN Administration Anxiety Magnesium Hydroxide 30 ml 11/04/20 14:00 Milk Of Magnesia 30 Ml Oral.Susp PO DAILY PRN Constipation Methadone HCl 80 mg 11/01/20 09:45 11/07/20 10:27 Methadone Hcl 1 Mg/0.1 Ml Oral.Conc PO 80 mg DAILY KIMO Administration Nicotine 21 mg 11/05/20 09:00 11/07/20 10:29 Nicotine 21 Mg Patch.Td24 TRANSDERMA Not Given DAILY KIMO Nicotine Polacrilex 2 mg 11/04/20 17:12 Nicotine Polacrilex 2 Mg Gum BUCCAL Q2H PRN Nicotine Cravings Quetiapine Fumarate 25 mg 11/02/20 13:44 11/03/20 20:49 Quetiapine Fumarate 25 Mg Tablet PO 25 mg BID PRN Administration Anxiety Quetiapine Fumarate 400 mg 11/02/20 21:00 11/06/20 20:51 Quetiapine Fumarate 400 Mg Tablet PO 400 mg BEDTIME KIMO Administration Trazodone HCl 100 mg 10/31/20 21:00 11/06/20 20:49 Trazodone Hcl 100 Mg Tablet PO 100 mg BEDTIME KIMO Administration Trazodone HCl 50 mg 11/04/20 14:00 Trazodone Hcl 50 Mg Tablet PO BEDTIME PRN Insomnia Venlafaxine HCl 37.5 mg 11/01/20 09:00 11/07/20 10:26 Venlafaxine Hcl Er 37.5 Mg Cap.Er.24h PO 37.5 mg DAILY KIMO Administration Venlafaxine HCl 75 mg 11/01/20 09:00 11/07/20 10:26 Venlafaxine Hcl Er 75 Mg Cap.Er.24h PO 75 mg DAILY KIMO Administration Allergies Allergies Allergy/AdvReac Type Severity Reaction Status Date / Time No Known Allergies Allergy Unverified 06/04/20 17:17 Assessment & Plan Assessment & Plan (1) Opioid dependence on agonist therapy: Status: Acute Code(s): F11.20 - Opioid dependence, uncomplicated (2) Amphetamine substance use disorder, moderate, in early remission, dependence: Status: Acute Code(s): F15.21 - Other stimulant dependence, in remission (3) MDD (major depressive disorder), recurrent episode, moderate: Status: Acute Code(s): F33.1 - Major depressive disorder, recurrent, moderate (4) Post traumatic stress disorder: Status: Acute Code(s): F43.10 - Post-traumatic stress disorder, unspecified Assessment and Plan: Maria Elena is largely stable at this time. She has no immediate concerns. WBC WNL No other changes. Greater than 50% of the session was spent on counseling and/or coordination of care Patient educated on: diagnosis and medication risk/benefits Informed Consent: further education needed Reason for contiued inpatient stay Substantial Risk for: inability to function
--- NOTE | 2020-11-07 14:36 | HO.PSYCHPN ---
Subjective Subjective Date of Service: 11/07/20 Reason For Visit: Depression Subjective Notes: Conditional Voluntary Interim History: Pt reports she is depressed but denies suicidal ideation. She reports sleeping eating well. She becomes irritable easlily. She denies SI/HI. She had no immediate concerns Medication Compliance: Yes Side effects from medications: No Attending Groups: Intermittent Review of Systems Acute medical concerns: No Medical Review of Systems: unchanged Mental Status Exam Mental Status Exam Patient Appearance: Fatigued and Disheveled Level of Consciousness: Appropriate Patient Behavior: Appropriate Mood Description: Apathetic Affect Description: Apathetic Ability to Follow Directions: Fair Speech Pattern: Soft-Spoken Hallucinations: None Delusions: Not Present Thought Process: Intact Thought Content: positive for Intact, negative for Suicidal Ideation and negative for Homicidal Ideation Judgement: Fair Diagnostics Vital Signs (24Hr): Vital Signs - 24 hr 11/06/20 15:50 11/06/20 20:49 11/07/20 06:10 Temperature 98.4 F 97.1 F Pulse Rate 64 58 61 Respiratory Rate 18 Blood Pressure 118/64 100/57 L 88/52 L Pulse Oximetry 97 Body Mass Index 34.3 Labs Results: 11/01/20 12:01 11/01/20 12:01 Medications Medications Current Medications Generic Name Dose Route Start Last Admin Trade Name Freq PRN Reason Stop Dose Admin Acetaminophen 650 mg 11/04/20 14:00 Acetaminophen 325 Mg Tablet PO Q6H PRN Headache/Pain Mild Scale (1-3) Al Hydroxide/Mg Hydroxide 30 ml 11/04/20 14:00 Magnesium Hydrox/Alum Hydrox 30 Ml Oral.Susp PO Q6H PRN Heartburn/Nausea Clonazepam 1 mg 11/06/20 21:00 11/07/20 10:26 Clonazepam 1 Mg Tablet PO 1 mg BID KIMO Administration Clonidine HCl 0.1 mg 10/31/20 21:00 11/06/20 20:49 Clonidine Hcl 0.1 Mg Tablet PO 0.1 mg BEDTIME KIMO Administration Protocol Gabapentin 300 mg 10/31/20 21:00 11/07/20 10:26 Gabapentin 300 Mg Capsule PO 300 mg TID KIMO Administration Hydroxyzine HCl 50 mg 11/04/20 14:00 11/06/20 18:06 Hydroxyzine Hcl 25 Mg Tablet PO 50 mg Q6H PRN Administration Anxiety Magnesium Hydroxide 30 ml 11/04/20 14:00 Milk Of Magnesia 30 Ml Oral.Susp PO DAILY PRN Constipation Methadone HCl 80 mg 11/01/20 09:45 11/07/20 10:27 Methadone Hcl 1 Mg/0.1 Ml Oral.Conc PO 80 mg DAILY KIMO Administration Nicotine 21 mg 11/05/20 09:00 11/07/20 10:29 Nicotine 21 Mg Patch.Td24 TRANSDERMA Not Given DAILY KIMO Nicotine Polacrilex 2 mg 11/04/20 17:12 Nicotine Polacrilex 2 Mg Gum BUCCAL Q2H PRN Nicotine Cravings Quetiapine Fumarate 25 mg 11/02/20 13:44 11/03/20 20:49 Quetiapine Fumarate 25 Mg Tablet PO 25 mg BID PRN Administration Anxiety Quetiapine Fumarate 400 mg 11/02/20 21:00 11/06/20 20:51 Quetiapine Fumarate 400 Mg Tablet PO 400 mg BEDTIME KIMO Administration Trazodone HCl 100 mg 10/31/20 21:00 11/06/20 20:49 Trazodone Hcl 100 Mg Tablet PO 100 mg BEDTIME KIMO Administration Trazodone HCl 50 mg 11/04/20 14:00 Trazodone Hcl 50 Mg Tablet PO BEDTIME PRN Insomnia Venlafaxine HCl 37.5 mg 11/01/20 09:00 11/07/20 10:26 Venlafaxine Hcl Er 37.5 Mg Cap.Er.24h PO 37.5 mg DAILY KIMO Administration Venlafaxine HCl 75 mg 11/01/20 09:00 11/07/20 10:26 Venlafaxine Hcl Er 75 Mg Cap.Er.24h PO 75 mg DAILY KIMO Administration Allergies Allergies Allergy/AdvReac Type Severity Reaction Status Date / Time No Known Allergies Allergy Unverified 06/04/20 17:17 Assessment & Plan Assessment & Plan (1) Opioid dependence on agonist therapy: Status: Acute Code(s): F11.20 - Opioid dependence, uncomplicated (2) Amphetamine substance use disorder, moderate, in early remission, dependence: Status: Acute Code(s): F15.21 - Other stimulant dependence, in remission (3) MDD (major depressive disorder), recurrent episode, moderate: Status: Acute Code(s): F33.1 - Major depressive disorder, recurrent, moderate (4) Post traumatic stress disorder: Status: Acute Code(s): F43.10 - Post-traumatic stress disorder, unspecified Assessment and Plan: Maria Elena is largely stable at this time. She has no immediate concerns. WBC slightly low. Will re-check. No other changes. Greater than 50% of the session was spent on counseling and/or coordination of care Patient educated on: diagnosis and medication risk/benefits Informed Consent: understands Reason for contiued inpatient stay Substantial Risk for: harm to self
[2020-11-07 18:00] VITALS: PULSE 78; RESP 16; O2SAT 100
[2020-11-07] MEDS: Magnesium Hydrox/Alum Hydrox 30 ML ORAL.SUSP PO (18:11)
[2020-11-07] MEDS: QUEtiapine Fumarate 400 MG TABLET PO (19:54)
[2020-11-07] MEDS: cloNIDine HCL 0.1 MG TABLET PO (19:54)
[2020-11-07] MEDS: traZODone HCL 100 MG TABLET PO (19:54)
[2020-11-07 19:58] VITALS: BP 117/71
[2020-11-08 06:00] VITALS: BP 85/51; PULSE 53; RESP 16; TEMP 36.1; O2SAT 96
[2020-11-08 09:28] LABS: Basophils Percent Auto 0.4 % (0-2); Eosinophils Absolute Auto 0.1 X10*3/uL (0.0-0.4); Eosinophils Percent Auto 2.3 % (0-4); Hematocrit 40.2 % (37-47); Hemoglobin 13.3 g/dl (12.0-16.0); Imm Gran Abs Auto 0.01 X10*3/uL (0.00-0.03); Imm Gran Pct Auto 0.2 % (0.0-0.4); Lymphocytes Absolute Auto 2.8 X10*3/uL (1.2-4.9); Lymphocytes Percent Auto 53.7 % (20-40); MANUAL DIFF FLAG NO; Mean Corpuscular HGB Conc 33.1 g/dl (31.0-35.0); Mean Corpuscular Hemoglobin 28.4 pg (27.0-33.0); Mean Corpuscular Volume 85.9 fL (80-98); Mean Platelet Volume 11.4 fL (9.4-12.3); Monocytes Absolute Auto 0.3 X10*3/uL (0.1-1.2); Monocytes Percent Auto 4.8 % (2-11); Neutrophils Percent Auto 38.6 % (45-73); Platelet Count 157 X10*3/uL (160-400); Red Blood Count 4.68 X10*6/uL (4.20-5.50); Red Cell Distribution Width 12.8 % (11.0-16.0); White Blood Count 5.2 X10*3/uL (4.8-10.8)
[2020-11-08] MEDS: Gabapentin 300 MG CAPSULE PO ×3 (11:21→21:15)
[2020-11-08] MEDS: Venlafaxine HCl ER 75 MG CAP.ER.24H PO (11:21)
[2020-11-08] MEDS: Venlafaxine HCl ER 37.5 MG CAP.ER.24H PO (11:22)
[2020-11-08] MEDS: clonazePAM 1 MG TABLET PO ×2 (11:24→21:15)
[2020-11-08 18:00] VITALS: BP 127/69; PULSE 87; TEMP 36.4
[2020-11-08] MEDS: QUEtiapine Fumarate 400 MG TABLET PO (21:15)
[2020-11-08] MEDS: traZODone HCL 100 MG TABLET PO (21:15)
[2020-11-08 21:17] VITALS: BP 127/69; PULSE 87
[2020-11-08] MEDS: cloNIDine HCL 0.1 MG TABLET PO (21:17)
[2020-11-09 06:05] VITALS: BP 95/60; PULSE 62; RESP 18; TEMP 36.7; O2SAT 96
[2020-11-09] MEDS: Gabapentin 300 MG CAPSULE PO ×3 (08:40→20:53)
[2020-11-09] MEDS: clonazePAM 1 MG TABLET PO ×2 (08:40→20:53)
[2020-11-09] MEDS: Venlafaxine HCl ER 75 MG CAP.ER.24H PO (08:40)
[2020-11-09] MEDS: Venlafaxine HCl ER 37.5 MG CAP.ER.24H PO (08:40)
--- NOTE | 2020-11-09 14:57 | P.PNPSI_ITS ---
Subjective Subjective Date of Service: 11/09/20 Reason For Visit: Depression Interim History: Pt reports less symptoms of depression. She denies suicidal and homicidal ideation. She reports some difficulty staying asleep. She insists less on increasing clonazepam. She has been visible in the unit and has attended some groups. She reports eating well. We discussed plan for OP psychotherap y/medication management. Review of Systems Review of Systems Yes all other systems are reviewed and are negative Constitutional: Reports no additional constitutional complaints, Denies body ache(s), Denies chills, Denies fever(s), Denies headache(s) and Denies weakness Eyes: Reports no additional eye complaints and Denies change in vision Reports system reviewed and no additional complaints, except as documented, Denies dizziness, Denies headache(s), Denies nasal congestion, Denies nasal discharge and Denies neck pain Cardiovascular: Reports no additional cardiovascular complaints, Denies chest pain, Denies leg edema and Denies dyspnea Respiratory: Reports no additional respiratory complaints, Denies cough and Den ies dyspnea Gastrointestinal: Reports no additional gastrointestinal complaints, Denies abdominal pain, Denies diarrhea, Denies nausea and Denies vomiting Musculoskeletal: Reports no additional musculoskeletal complaints, Denies back pain, Denies arthralgias, Denies joint swelling, Denies neck pain, Denies numbness and Denies tingling Skin/Breast: Reports system reviewed and no additional complaints, except as docu and Denies rash Reports system reviewed and no additional complaints, except as documented, Denies Abnormal speech present, Denies dizziness, Denies headache(s), Denies numbness, Denies tingling and Denies weakness Psychiatric: Reports anxiety, Reports depression, Denies visual hallucinations, Denies hallucinations, Denies homicidal ideation and Reports suicidal ideation Mental Status Exam Mental Status Exam Narrative: Appearance: wearing hospital gown, disheveled, in NAD Behavior: cooperative Psychomotor: no agitation or retardation noted Speech: clear, normal rate/rhythm/volume, spontaneous TP: linear TC: no signs of psychosis, future oriented Mood: anxious Affect: bright, non labile, irritable at times AH/VH: none Delusions: none Insight/judgment: fair x 2. Memory/cog: alert, oriented x 4. Grossly intact to conversational testing. Patient Appearance: Fatigued and Disheveled Level of Consciousness: Appropriate Patient Behavior: Appropriate Mood Description: Apathetic Affect Description: Apathetic Ability to Follow Directions: Fair Speech Pattern: Soft-Spoken Diagnostics Vital Signs (24Hr): Vital Signs - 24 hr 11/08/20 18:00 11/08/20 21:17 11/09/20 06:05 Temperature 97.5 F 98.1 F Pulse Rate 87 87 62 Respiratory Rate 18 Blood Pressure 127/69 127/69 95/60 Pulse Oximetry 96 Body Mass Index 34.3 Labs Results: 11/08/20 08:33 11/01/20 12:01 Labs: Laboratory Results - last 48 hr 11/08/20 08:33 WBC 5.2 RBC 4.68 Hgb 13.3 Hct 40.2 MCV 85.9 MCH 28.4 MCHC 33.1 RDW 12.8 Plt Count 157 L MPV 11.4 Immature Gran % (Auto) 0.2 Neut % (Auto) 38.6 L Lymph % (Auto) 53.7 H Ness % (Auto) 4.8 Eos % (Auto) 2.3 Baso % (Auto) 0.4 Lymph # (Auto) 2.8 Ness # (Auto) 0.3 Eos # (Auto) 0.1 Baso # (Auto) 0.0 Abs Immat Gran (auto) 0.01 Absolute Neuts (auto) 2.0 Absolute Nucleated RBC 0.000 Nucleated RBC % (auto) 0.0 Medications Medications Current Medications Generic Name Dose Route Start Last Admin Trade Name Freq PRN Reason Stop Dose Admin Acetaminophen 650 mg 11/04/20 14:00 Acetaminophen 325 Mg Tablet PO Q6H PRN Headache/Pain Mild Scale (1-3) Al Hydroxide/Mg Hydroxide 30 ml 11/04/20 14:00 11/07/20 18:11 Magnesium Hydrox/Alum Hydrox 30 Ml Oral.Susp PO 30 ml Q6H PRN Administration Heartburn/Nausea Clonazepam 1 mg 11/06/20 21:00 11/09/20 08:40 Clonazepam 1 Mg Tablet PO 1 mg BID KIMO Administration Clonidine HCl 0.1 mg 10/31/20 21:00 11/08/20 21:17 Clonidine Hcl 0.1 Mg Tablet PO 0.1 mg BEDTIME KIMO Administration Protocol Gabapentin 300 mg 10/31/20 21:00 11/09/20 14:36 Gabapentin 300 Mg Capsule PO 300 mg TID KIMO Administration Hydroxyzine HCl 50 mg 11/04/20 14:00 11/06/20 18:06 Hydroxyzine Hcl 25 Mg Tablet PO 50 mg Q6H PRN Administration Anxiety Magnesium Hydroxide 30 ml 11/04/20 14:00 Milk Of Magnesia 30 Ml Oral.Susp PO DAILY PRN Constipation Methadone HCl 80 mg 11/01/20 09:45 11/09/20 08:40 Methadone Hcl 1 Mg/0.1 Ml Oral.Conc PO 80 mg DAILY KIMO Administration Nicotine 21 mg 11/05/20 09:00 11/09/20 08:43 Nicotine 21 Mg Patch.Td24 TRANSDERMA Not Given DAILY KIMO Nicotine Polacrilex 2 mg 11/04/20 17:12 Nicotine Polacrilex 2 Mg Gum BUCCAL Q2H PRN Nicotine Cravings Quetiapine Fumarate 25 mg 11/02/20 13:44 11/03/20 20:49 Quetiapine Fumarate 25 Mg Tablet PO 25 mg BID PRN Administration Anxiety Quetiapine Fumarate 400 mg 11/02/20 21:00 11/08/20 21:15 Quetiapine Fumarate 400 Mg Tablet PO 400 mg BEDTIME KIMO Administration Trazodone HCl 100 mg 10/31/20 21:00 11/08/20 21:15 Trazodone Hcl 100 Mg Tablet PO 100 mg BEDTIME KIMO Administration Trazodone HCl 50 mg 11/04/20 14:00 Trazodone Hcl 50 Mg Tablet PO BEDTIME PRN Insomnia Venlafaxine HCl 37.5 mg 11/01/20 09:00 11/09/20 08:40 Venlafaxine Hcl Er 37.5 Mg Cap.Er.24h PO 37.5 mg DAILY KIMO Administration Venlafaxine HCl 75 mg 11/01/20 09:00 11/09/20 08:40 Venlafaxine Hcl Er 75 Mg Cap.Er.24h PO 75 mg DAILY KIMO Administration Allergies Allergies Allergy/AdvReac Type Severity Reaction Status Date / Time No Known Allergies Allergy Unverified 06/04/20 17:17 Assessment & Plan Assessment & Plan (1) Opioid dependence on agonist therapy: Status: Acute Code(s): F11.20 - Opioid dependence, uncomplicated (2) Amphetamine substance use disorder, moderate, in early remission, depe ndence: Status: Acute Code(s): F15.21 - Other stimulant dependence, in remission (3) MDD (major depressive disorder), recurrent episode, moderate: Status: Acute Code(s): F33.1 - Major depressive disorder, recurrent, moderate (4) Post traumatic stress disorder: Status: Acute Code(s): F43.10 - Post-traumatic stress disorder, unspecified Assessment and Plan: 1. Increase Venlafaxine to 150mg po daily. 2. Continue all other medications as prescribed. Greater than 50% of the session was spent on counseling and/or coordination of care Reason for contiued inpatient stay Substantial Risk for: harm to self
[2020-11-09 17:29] VITALS: BP 118/60; PULSE 73; TEMP 36.4
[2020-11-09 20:52] VITALS: BP 122/68; PULSE 82
[2020-11-09] MEDS: cloNIDine HCL 0.1 MG TABLET PO (20:52)
[2020-11-09] MEDS: traZODone HCL 100 MG TABLET PO (20:53)
[2020-11-09] MEDS: QUEtiapine Fumarate 400 MG TABLET PO (20:53)
[2020-11-10 06:15] VITALS: BP 104/55; PULSE 54; RESP 16; TEMP 36.3; O2SAT 97
[2020-11-10] MEDS: Gabapentin 300 MG CAPSULE PO ×3 (08:55→21:43)
[2020-11-10] MEDS: clonazePAM 1 MG TABLET PO ×2 (08:55→21:43)
[2020-11-10] MEDS: Venlafaxine HCl ER 150 MG CAP.ER.24H PO (08:55)
[2020-11-10] MEDS: QUEtiapine Fumarate 25 MG TABLET PO (13:19)
[2020-11-10] MEDS: hydrOXYzine HCL 25 MG TABLET 50 MG PO (13:20)
--- NOTE | 2020-11-10 16:32 | HO.PSYCHPN ---
Subjective Subjective Date of Service: 11/10/20 Reason For Visit: Depression Interim History: Pt met with this junior underwriter and clinician Shefali. Pt reports feeling less depressed. She reports sleeping and eating well. She does talk about themes related to other not seeing her struggles and all hard work she has done to work on her substance use. She denies SI/HI. We discussed that process of building a stable life will continue including looking going back to school, continue working on grief, depressive symptoms, self esteem. She has been visible in the unit. No behavioral concerns. We discussed possible discharge on . Review of Systems Review of Systems Yes all other systems are reviewed and are negative Constitutional: Reports no additional constitutional complaints, Denies body ache(s), Denies chills, Denies fever(s), Denies headache(s) and Denies weakness Eyes: Reports no additional eye complaints and Denies change in vision Reports system reviewed and no additional complaints, except as documented, Denies dizziness, Denies headache(s), Denies nasal congestion, Denies nasal discharge and Denies neck pain Cardiovascular: Reports no additional cardiovascular complaints, Denies chest pain, Denies leg edema and Denies dyspnea Respiratory: Reports no additional respiratory complaints, Denies cough and Denies dyspnea Gastrointestinal: Reports no additional gastrointestinal complaints, Denies abdominal pain, Denies diarrhea, Denies nausea and Denies vomiting Musculoskeletal: Reports no additional musculoskeletal complaints, Denies back pain, Denies arthralgias, Denies joint swelling, Denies neck pain, Denies numbness and Denies tingling Skin/Breast: Reports system reviewed and no additional complaints, except as docu and Denies rash Reports system reviewed and no additional complaints, except as documented, Denies Abnormal speech present, Denies dizziness, Denies headache(s), Denies numbness, Denies tingling and Denies weakness Psychiatric: Reports anxiety, Reports depression, Denies visual hallucinations, Denies hallucinations, Denies homicidal ideation and Reports suicidal ideation Mental Status Exam Mental Status Exam Narrative: Appearance: wearing hospital gown, disheveled, in NAD Behavior: cooperative Psychomotor: no agitation or retardation noted Speech: clear, normal rate/rhythm/volume, spontaneous TP: linear TC: no signs of psychosis, future oriented Mood: anxious Affect: bright, non labile, irritable at times AH/VH: none Delusions: none Insight/judgment: fair x 2. Memory/cog: alert, oriented x 4. Grossly intact to conversational testing. Patient Appearance: Fatigued and Disheveled Level of Consciousness: Appropriate Patient Behavior: Appropriate Mood Description: Apathetic Affect Description: Apathetic Ability to Follow Directions: Fair Speech Pattern: Soft-Spoken Diagnostics Vital Signs (24Hr): Vital Signs - 24 hr 11/09/20 17:29 11/09/20 20:52 11/10/20 06:15 Temperature 97.6 F 97.3 F Pulse Rate 73 82 54 Respiratory Rate 16 Blood Pressure 118/60 122/68 104/55 L Pulse Oximetry 97 Body Mass Index 34.3 Labs Results: 11/08/20 08:33 11/01/20 12:01 Medications Medications Current Medications Generic Name Dose Route Start Last Admin Trade Name Freq PRN Reason Stop Dose Admin Acetaminophen 650 mg 11/04/20 14:00 Acetaminophen 325 Mg Tablet PO Q6H PRN Headache/Pain Mild Scale (1-3) Al Hydroxide/Mg Hydroxide 30 ml 11/04/20 14:00 11/07/20 18:11 Magnesium Hydrox/Alum Hydrox 30 Ml Oral.Susp PO 30 ml Q6H PRN Administration Heartburn/Nausea Clonazepam 1 mg 11/06/20 21:00 11/10/20 08:55 Clonazepam 1 Mg Tablet PO 1 mg BID KIMO Administration Clonidine HCl 0.1 mg 10/31/20 21:00 11/09/20 20:52 Clonidine Hcl 0.1 Mg Tablet PO 0.1 mg BEDTIME KIMO Administration Protocol Gabapentin 300 mg 10/31/20 21:00 11/10/20 08:55 Gabapentin 300 Mg Capsule PO 300 mg TID KIMO Administration Hydroxyzine HCl 50 mg 11/04/20 14:00 11/10/20 13:20 Hydroxyzine Hcl 25 Mg Tablet PO 50 mg Q6H PRN Administration Anxiety Magnesium Hydroxide 30 ml 11/04/20 14:00 Milk Of Magnesia 30 Ml Oral.Susp PO DAILY PRN Constipation Methadone HCl 80 mg 11/01/20 09:45 11/10/20 08:55 Methadone Hcl 1 Mg/0.1 Ml Oral.Conc PO 80 mg DAILY KIMO Administration Nicotine 21 mg 11/05/20 09:00 11/10/20 09:49 Nicotine 21 Mg Patch.Td24 TRANSDERMA Not Given DAILY KIMO Nicotine Polacrilex 2 mg 11/04/20 17:12 Nicotine Polacrilex 2 Mg Gum BUCCAL Q2H PRN Nicotine Cravings Quetiapine Fumarate 25 mg 11/02/20 13:44 11/10/20 13:19 Quetiapine Fumarate 25 Mg Tablet PO 25 mg BID PRN Administration Anxiety Quetiapine Fumarate 400 mg 11/02/20 21:00 11/09/20 20:53 Quetiapine Fumarate 400 Mg Tablet PO 400 mg BEDTIME KIMO Administration Trazodone HCl 100 mg 10/31/20 21:00 11/09/20 20:53 Trazodone Hcl 100 Mg Tablet PO 100 mg BEDTIME KIMO Administration Trazodone HCl 50 mg 11/04/20 14:00 Trazodone Hcl 50 Mg Tablet PO BEDTIME PRN Insomnia Venlafaxine HCl 150 mg 11/10/20 09:00 11/10/20 08:55 Venlafaxine Hcl Er 150 Mg Cap.Er.24h PO 150 mg DAILY KIMO Administration Allergies Allergies Allergy/AdvReac Type Severity Reaction Status Date / Time No Known Allergies Allergy Unverified 06/04/20 17:17 Assessment & Plan Assessment & Plan (1) Opioid dependence on agonist therapy: Status: Acute Code(s): F11.20 - Opioid dependence, uncomplicated (2) Amphetamine substance use disorder, moderate, in early remission, dependence: Status: Acute Code(s): F15.21 - Other stimulant dependence, in remission (3) MDD (major depressive disorder), recurrent episode, moderate: Status: Acute Code(s): F33.1 - Major depressive disorder, recurrent, moderate (4) Post traumatic stress disorder: Status: Acute Code(s): F43.10 - Post-traumatic stress disorder, unspecified Assessment and Plan: 1. Continue Venlafaxine to 150mg po daily. 2. Continue all other medications as prescribed. Greater than 50% of the session was spent on counseling and/or coordination of care Reason for contiued inpatient stay Substantial Risk for: med/psych decompensation
[2020-11-10 17:34] VITALS: BP 105/52; PULSE 69; RESP 16; TEMP 36
[2020-11-10] MEDS: QUEtiapine Fumarate 400 MG TABLET PO (21:43)
[2020-11-10] MEDS: traZODone HCL 100 MG TABLET PO (21:43)
[2020-11-10 21:54] VITALS: BP 115/58; PULSE 73
[2020-11-10] MEDS: cloNIDine HCL 0.1 MG TABLET PO (21:54)
[2020-11-11 06:35] VITALS: BP 95/55; PULSE 53; RESP 16; TEMP 36.4; O2SAT 95
[2020-11-11] MEDS: Venlafaxine HCl ER 150 MG CAP.ER.24H PO (08:27)
[2020-11-11] MEDS: clonazePAM 1 MG TABLET PO ×2 (08:27→20:31)
[2020-11-11] MEDS: Gabapentin 300 MG CAPSULE PO ×3 (08:27→20:31)
--- NOTE | 2020-11-11 15:57 | HO.PSYCHPN ---
Subjective Subjective Date of Service: 11/11/20 Reason For Visit: Depression Interim History: Pt met with this repairer typewriter and clinician Shefali. Pt overall reports less depressed mood, less anxious mood and denies SI/HI. Het thought content with themes of feeling lonely, empty, I have no one. She talks about feeling like she is being judged because of her history of substance use. She reports sleeping and eating well. She has been in groups but later in day was in room. Review of Systems Review of Systems Yes all other systems are reviewed and are negative Constitutional: Reports no additional constitutional complaints, Denies body ache(s), Denies chills, Denies fever(s), Denies headache(s) and Denies weakness Eyes: Reports no additional eye complaints and Denies change in vision Reports system reviewed and no additional complaints, except as documented, Denies dizziness, Denies headache(s), Denies nasal congestion, Denies nasal discharge and Denies neck pain Cardiovascular: Reports no additional cardiovascular complaints, Denies chest pain, Denies leg edema and Denies dyspnea Respiratory: Reports no additional respiratory complaints, Denies cough and Denies dyspnea Gastrointestinal: Reports no additional gastrointestinal complaints, Denies abdominal pain, Denies diarrhea, Denies nausea and Denies vomiting Musculoskeletal: Reports no additional musculoskeletal complaints, Denies back pain, Denies arthralgias, Denies joint swelling, Denies neck pain, Denies numbness and Denies tingling Skin/Breast: Reports system reviewed and no additional complaints, except as docu and Denies rash Reports system reviewed and no additional complaints, except as documented, Denies Abnormal speech present, Denies dizziness, Denies headache(s), Denies numbness, Denies tingling and Denies weakness Psychiatric: Reports anxiety, Reports depression, Denies visual hallucinations, Denies hallucinations, Denies homicidal ideation and Reports suicidal ideation Mental Status Exam Mental Status Exam Narrative: Appearance: wearing hospital gown, disheveled, in NAD Behavior: cooperative Psychomotor: no agitation or retardation noted Speech: clear, normal rate/rhythm/volume, spontaneous TP: linear TC: no signs of psychosis, future oriented Mood: anxious Affect: bright, non labile, irritable at times AH/VH: none Delusions: none Insight/judgment: fair x 2. Memory/cog: alert, oriented x 4. Grossly intact to conversational testing. Patient Appearance: Fatigued and Disheveled Level of Consciousness: Appropriate Patient Behavior: Appropriate Mood Description: Apathetic Affect Description: Apathetic Ability to Follow Directions: Fair Speech Pattern: Soft-Spoken Diagnostics Vital Signs (24Hr): Vital Signs - 24 hr 11/10/20 17:34 11/10/20 21:54 11/11/20 06:35 Temperature 96.8 F 97.5 F Pulse Rate 69 73 53 Respiratory Rate 16 16 Blood Pressure 105/52 L 115/58 L 95/55 L Pulse Oximetry 95 Body Mass Index 34.3 Labs Results: 11/08/20 08:33 11/01/20 12:01 Medications Medications Current Medications Generic Name Dose Route Start Last Admin Trade Name Freq PRN Reason Stop Dose Admin Acetaminophen 650 mg 11/04/20 14:00 Acetaminophen 325 Mg Tablet PO Q6H PRN Headache/Pain Mild Scale (1-3) Al Hydroxide/Mg Hydroxide 30 ml 11/04/20 14:00 11/07/20 18:11 Magnesium Hydrox/Alum Hydrox 30 Ml Oral.Susp PO 30 ml Q6H PRN Administration Heartburn/Nausea Clonazepam 1 mg 11/06/20 21:00 11/11/20 08:27 Clonazepam 1 Mg Tablet PO 1 mg BID KIMO Administration Clonidine HCl 0.1 mg 10/31/20 21:00 11/10/20 21:54 Clonidine Hcl 0.1 Mg Tablet PO 0.1 mg BEDTIME KIMO Administration Protocol Gabapentin 300 mg 10/31/20 21:00 11/11/20 14:18 Gabapentin 300 Mg Capsule PO 300 mg TID KIMO Administration Hydroxyzine HCl 50 mg 11/04/20 14:00 11/10/20 13:20 Hydroxyzine Hcl 25 Mg Tablet PO 50 mg Q6H PRN Administration Anxiety Magnesium Hydroxide 30 ml 11/04/20 14:00 Milk Of Magnesia 30 Ml Oral.Susp PO DAILY PRN Constipation Methadone HCl 80 mg 11/01/20 09:45 11/11/20 10:24 Methadone Hcl 1 Mg/0.1 Ml Oral.Conc PO 80 mg DAILY KIMO Administration Nicotine 21 mg 11/05/20 09:00 11/11/20 08:28 Nicotine 21 Mg Patch.Td24 TRANSDERMA Not Given DAILY KIMO Nicotine Polacrilex 2 mg 11/04/20 17:12 Nicotine Polacrilex 2 Mg Gum BUCCAL Q2H PRN Nicotine Cravings Quetiapine Fumarate 25 mg 11/02/20 13:44 11/10/20 13:19 Quetiapine Fumarate 25 Mg Tablet PO 25 mg BID PRN Administration Anxiety Quetiapine Fumarate 400 mg 11/02/20 21:00 11/10/20 21:43 Quetiapine Fumarate 400 Mg Tablet PO 400 mg BEDTIME KIMO Administration Trazodone HCl 100 mg 10/31/20 21:00 11/10/20 21:43 Trazodone Hcl 100 Mg Tablet PO 100 mg BEDTIME KIMO Administration Trazodone HCl 50 mg 11/04/20 14:00 Trazodone Hcl 50 Mg Tablet PO BEDTIME PRN Insomnia Venlafaxine HCl 150 mg 11/10/20 09:00 11/11/20 08:27 Venlafaxine Hcl Er 150 Mg Cap.Er.24h PO 150 mg DAILY KIMO Administration Allergies Allergies Allergy/AdvReac Type Severity Reaction Status Date / Time No Known Allergies Allergy Unverified 06/04/20 17:17 Assessment & Plan Assessment & Plan (1) Opioid dependence on agonist therapy: Status: Acute Code(s): F11.20 - Opioid dependence, uncomplicated (2) Amphetamine substance use disorder, moderate, in early remission, dependence: Status: Acute Code(s): F15.21 - Other stimulant dependence, in remission (3) MDD (major depressive disorder), recurrent episode, moderate: Status: Acute Code(s): F33.1 - Major depressive disorder, recurrent, moderate (4) Post traumatic stress disorder: Status: Acute Code(s): F43.10 - Post-traumatic stress disorder, unspecified Assessment and Plan: 1. Continue Venlafaxine to 150mg po daily. 2. Continue all other medications as prescribed. Greater than 50% of the session was spent on counseling and/or coordination of care Reason for contiued inpatient stay Substantial Risk for: stable for discharge
[2020-11-11 16:55] VITALS: BP 108/52; PULSE 66; RESP 16; TEMP 36.2
[2020-11-11 20:31] VITALS: BP 104/59; PULSE 77
[2020-11-11] MEDS: traZODone HCL 100 MG TABLET PO (20:31)
[2020-11-11] MEDS: QUEtiapine Fumarate 400 MG TABLET PO (20:31)
[2020-11-11] MEDS: cloNIDine HCL 0.1 MG TABLET PO (20:31)
[2020-11-12 06:00] VITALS: BP 93/48; PULSE 57; RESP 18; TEMP 36.7; O2SAT 97
[2020-11-12] MEDS: clonazePAM 1 MG TABLET PO (08:52)
[2020-11-12] MEDS: Venlafaxine HCl ER 150 MG CAP.ER.24H PO (08:52)
[2020-11-12] MEDS: Gabapentin 300 MG CAPSULE PO ×2 (08:52→14:24)
--- NOTE | 2020-11-12 10:50 | P.DS_ITS ---
DS: Providers Provider Date of Service: 12/07/20 Date of admission: 11/04/20 14:00 Primary care physician: Christiano Wang MD DS: Diagnosis Discharge Diagnosis (1) Opioid dependence on agonist therapy: Status: Acute (2) MDD (major depressive disorder), recurrent episode, moderate: Status: Acute (3) Post traumatic stress disorder: Status: Acute DS: Medications Discharge Medications Home Medications: Home Medications Medication Instructions Recorded Confirmed methadone 80 mg PO DAILY 11/01/20 11/01/20 Previous Rx's Medication Instructions Recorded clonazepam 1 mg PO BID PRN #30 tab 11/12/20 clonidine HCl 0.1 mg PO BEDTIME 15 Days #15 tab 11/12/20 gabapentin 300 mg PO TID 30 Days #90 cap 11/12/20 nicotine 21 mg TRANSDERMAL DAILY #28 ea 11/12/20 quetiapine 400 mg PO BEDTIME 30 Days #30 tab 11/12/20 trazodone 100 mg PO BEDTIME 30 Days #30 tab 11/12/20 venlafaxine 150 mg PO DAILY 30 Days #30 cap 11/12/20 Discharge Plan Discharge Patient Disposition: Home, Self-Care Referrals: Therapist: Flori Matson ([facility]) [Other] - 11/13/20 3:00 pm PHP: [facility] ([facility]) [Other] - 11/16/20 9:00 am Christiano Wang MD [Primary Care Provider] - Discharge Medications: New nicotine 21 mg/24 hr Patch 24 Hour 21 mg transdermal DAILY Qty: 28 RF: 0 clonidine HCl 0.1 mg Tablet 0.1 mg PO BEDTIME 15 Days Qty: 15 RF: 1 gabapentin 300 mg Capsule 300 mg PO TID 30 Days Qty: 90 RF: 0 quetiapine 400 mg Tablet 400 mg PO BEDTIME 30 Days Qty: 30 RF: 0 trazodone 100 mg Tablet 100 mg PO BEDTIME 30 Days Qty: 30 RF: 0 venlafaxine 150 mg Capsule,Extended Release 24hr 150 mg PO DAILY 30 Days Qty: 30 RF: 0 Continued methadone 10 mg/mL Concentrate 80 mg PO DAILY RF: 0 Changed clonazepam 1 mg tablet 1 mg PO BID PRN (Reason: anxiety) Qty: 30 RF: 0 Discontinued gabapentin 300 mg capsule 1 cap PO TID RF: 0 clonidine HCl 0.1 mg Tablet 0.1 mg PO BEDTIME 15 Days Qty: 15 RF: 0 trazodone 100 mg Tablet 100 mg PO BEDTIME 15 Days Qty: 15 RF: 0 venlafaxine 37.5 mg Capsule,Extended Release 24hr 37.5 mg PO DAILY 15 Days Qty: 15 RF: 0 venlafaxine 75 mg Capsule,Extended Release 24hr 75 mg PO DAILY 15 Days Qty: 15 RF: 0 quetiapine 400 mg tablet 1 tab PO BEDTIME RF: 0 quetiapine 25 mg tablet 1 tab PO BID PRN (Reason: Anxiety) RF: 0 Discharge Orders: Discharge Order (Routine); Ordered 11/12/20 Ordered By: Precious Cameron Diet: regular diet Activity on Discharge: As tolerated Stand Alone Forms: Patient Portal Discharge page, Community Support Care Plan Goals: 1. follow up with referrals 2. take medications as prescribed Health Concerns: 1. follow up with pcp Plan of Treatment: 1. follow up with referrals 2. take medications as prescribed Discharge Date/Time: 11/12/20 15:05 Mental Status Exam Mental Status Exam Narrative: Appearance: wearing hospital gown, disheveled, in NAD Behavior: cooperative Psychomotor: no agitation or retardation noted Speech: clear, normal rate/rhythm/volume, spontaneous TP: linear TC: no signs of psychosis, future oriented Mood: anxious Affect: bright, non labile, irritable at times AH/VH: none Delusions: none Insight/judgment: fair x 2. Memory/cog: alert, oriented x 4. Grossly intact to conversational testing. Data Data Completed and Pending Completed studies during hospitalization [Text1]: 11/05/20 11/08/20 11:55 08:33 WBC 5.2 RBC 4.68 Hgb 13.3 Hct 40.2 MCV 85.9 MCH 28.4 MCHC 33.1 RDW 12.8 Plt Count 157 L MPV 11.4 Immature Gran % (Auto) 0.2 Neut % (Auto) 38.6 L Lymph % (Auto) 53.7 H [place] % (Auto) 4.8 Eos % (Auto) 2.3 Baso % (Auto) 0.4 Lymph # (Auto) 2.8 [place] # (Auto) 0.3 Eos # (Auto) 0.1 Baso # (Auto) 0.0 Abs Immat Gran (auto) 0.01 Absolute Neuts (auto) 2.0 Absolute Nucleated RBC 0.000 Nucleated RBC % (auto) 0.0 COVID-19 ([facility]) Negative COVID-19 Clin Com See Note DS: Summary Hospital Course Hospital Course: Ms. Soler is a 39 year-old woman with hx of MDD/PTSD, substance use in remission who self presented to [facility] reporting increased depression, anxious mood, suicidal ideation in context of having panic attacks and not receiving dose of clonazepam that she states is effective for her. Ms. Soler was recently discharged from [facility] on 10/21/2020 after similar presentation. On the unit, Ms. Soler reports that she did not follow up with referrals. At time of discharged pt had declined a referral to [facility] and had reported that she wanted to continue with providers in [place] who were prescribing clonazepam for for her. Pt reports she had run out of clonazepam and went to ED to ask for prescription on 10/23/2020. She was given the prescription for 10 days. She later represented to ED and as she was informed that no prescription for clonazepam will be given, pt reported that she was suicidal and not safe to be in the community. Pt presents with brighter affect than her reported mood. Pt insists that she needs clonazepam, which pt was reminded agreement was that she was continued during hospital stay as she had reported having ongoing prescription from prescriber. We discussed risks, benefits and alternative treatment options. Pt agreed to continue Effexor, Gabapentin, seroquel. She denied any plan or intent to hurt herself or others. Past Psychiatric History: Inpatient admission: multiple inpatient admissions since 2009. Last documented admission per [facility] crisis is 02/2017 at [place]. However, pt reports recent admission to [facility] 2 months ago post suicide attempt. HOSPITAL COURSE On the unit, Ms. Soler was placed on 15 minutes checks for safety. She was seen daily by treatment team. Pt endorse depressed mood, anhedonia, passive suicidal ideation, poor sleep and increased anxious mood. We discussed risks, benefits and alternative treatment options. Pt mostly insisting on increasing dose of benzodiazepine, which she was informed would not be an option. Her affect was often much brighter than reported mood, especially when she was in the unit with peers, socializing or in groups. She noted to have poor boundaries with peers and difficult following the rules of the unit when redirected. Her presentation is consistent with significant personality traits such as Borderline Personality Disorder. We encouraged pt to consider DBT treatment to help self regulate, gain insight into his behaviors and mood dysregulation. She was somewhat open to this. There some incidences of disruptive behaviors in that pt would at times coached peers to ask for certain medications or reject treatment. When asking pt maintain boundaries with peers she was not always open for feedback. There were no need for restraints. Status at Discharge Cognitive/behavioral status at discharge: Pt denied SI/HI. Pt appeared with brighter affect, seen smiling socializing although at times her reports of mood when meeting individually with treatment team were different. No signs of aggression towards self or others. Functional status at discharge: independent ambulation Overall status at discharge: patient is back to baseline Time Spent with Patient Time attestation: Total time spent providing and/or coordinating discharge services: Time spent: Less than 30 minutes
--- NOTE | 2020-11-12 11:23 | PC.NURSE ---
PT VERBALIZES A DECREASE IN DEPRESSION. SHE HAS BEEN TAKING MEDICATIONS WITHOUT HESITATION. PT HAS BEEN IN BEHAVIORAL CONTROL MOST OF THE TIME. HER MOOD HAS IMPROVED. PT HAS BEEN SOCIAL TO OTHER PTS. PT STILL EXPRESSES ANXIETY BUT IT IS LESSENING. PT IS ABLE TO ADVOCATE FOR HERSELF. SHE HAS BEEN INDEPENDENTLY TAKING CARE OF HER ADLS. SHE IS AWARE AND READY FOR DISCHARGE. PT HAS A STABLE LIVING SITUATION SET UP. PT IS EATING AND SLEEPING ADEQUATELY. PT IS NOT DELUSIONAL OR PARANOID. SHE HAS BEEN CALM AND COOPERATIVE. PT HAS BEEN USIN COPING SKILLS. PTS PAPERWORK HAS BEEN FAXED TO PROVIDER PER PROTOCOL.
== END 2020-11-12 15:05 | disposition home or self-care (01) | DRG 885 ==
LOC: HO.ED 12:21 → HO.PM5 11-04 14:06
PROVIDERS: Nurse Practitioner Family; Physician Assistant Medical; Psychiatry & Neurology Psychiatry; Admitting Provider Social Worker; Emergency Provider Emergency Medicine Emergency Medical Services; PCP Obstetrics & Gynecology; Visit Provider Social Worker
DX: F33.1 Major depressive disorder, recurrent, moderate (principal); F11.20 Opioid dependence, uncomplicated; R45.851 Suicidal ideations; Z91.5 Personal history of self-harm; F41.9 Anxiety disorder, unspecified; F17.210 Nicotine dependence, cigarettes, uncomplicated; Z20.822 Contact with and (suspected) exposure to COVID-19; Z71.6 Tobacco abuse counseling; F15.21 Other stimulant dependence, in remission; F43.10 Post-traumatic stress disorder, unspecified; Z79.899 Other long term (current) drug therapy
CPT/HCPCS: 36415; 80048; 80076; 80307; 80320; 81025; 83735; 85025; 87635; 96360; 99285